=== PATIENT | female | born 1985 | race Caucasian/White ===

== ENCOUNTER 2018-07-19 12:57 | Emergency (ER) | payer MEDICAID, SELFPAY ==
[2018-07-19 13:07] VITALS: BP 117/72; PULSE 95; RESP 16; TEMP 36.6; O2SAT 95
--- NOTE | 2018-07-19 13:19 | W.ED.GENAD ---
Discharge Plan Disposition Patient Disposition: HOME Condition: Stable Discharge Details Chief Complaint: Sorethroat Clinical Impression: Upper respiratory infection, viral Primary Care Provider: Dayami Saucedo ED Provider: Dagoberto Sifuentes Home Meds and New Rx's Prescriptions: No Action acetaminophen [Tylenol Extra Strength] 500 MG tablet 1,000 mg PO PRN PRNRF: 0 Discharge Instructions Instructions: Upper Respiratory Infection (ED) Additional Instructions: Feel free to return immediately to the emergency department for any new or worsening symptoms. These may include shortness of breath, difficulty swallowing, significant change, high fever that is persistent. Otherwise get plenty of rest and drink plenty of fluids during viral illness. You may take [id number] cough and cold medication as needed for control of your symptoms. Stand Alone Forms: Work Release Referrals: Dayami Saucedo MD [Primary Care Provider] - (As needed for reassessment or if not improving over the next week. ) Discharge Data Discharge Date/Time-TO BE ENTERED AT DEPARTURE: 07/19/18 13:31 Medical Decision Making Patient presenting to the emergency department with chief complaint of sore throat, nasal congestion, dry cough. Patient states yesterday her son was diagnosed with strep throat and then yesterday evening she began having fever chills body aches sore throat nasal congestion and cough. Physical exam is consistent for upper respiratory tract infection but patient does have some tonsillary exudates and erythema. Given possible exposure rapid strep test was performed by staff submarine warfare officer which shows negative rapid strep test. Given less than 24 hours of symptoms and no signs of severe or septic illness I feel that this is more than likely viral in etiology but still plan on having strep test sent for culture given possible exposure. Patient was informed to use [id number] cough and cold medication for her symptoms and given a work note to excuse her for the next couple days. Informed patient that we would contact her with any positive culture and bit her on antibiotics as needed. After discussion of diagnosis and plan of care patient has no further needs, questions, or concerns and states clear understanding to return to the emergency department for any worsening symptoms. Lab Data Lab results reviewed: Yes I reviewed the patient's lab results. HPI General Date/Time Provider Initiated Documentation: 07/19/18 13:19. Limitations to Documentation: no limitations. Information obtained by: patient and RN notes reviewed. History of Present Illness 32 year old F presents to the emergency department with the chief complaint of Sore throat, described as moderate, with intensity rated at 5. Quality is described as aching, and is localized to the mouth (Sore throat). Patient reports no radiation. Patient started experiencing this day(s) (1) and it has been constant. No relieving factors improve symptom(s), Related Data Home Medications Medication Instructions Recorded Confirmed acetaminophen [Tylenol Extra 1,000 mg PO PRN PRN 01/02/15 07/19/18 Strength] Allergies Allergy/AdvReac Type Severity Reaction Status Date / Time epinephrine AdvReac Severe PULSE Unverified 07/19/18 13:16 DROPS, BP DROPS General Stated Complaint: Sorethroat KT: 4 Review of Systems Constitutional Reports body ache(s), Reports chills, Reports fever(s), Denies headache(s) and Reports malaise Eyes Denies eye discharge ENT Reports as per HPI, Denies headache(s), Reports nasal congestion, Denies neck pain, Reports sore throat and Denies throat swelling Cardiovascular Denies chest pain and Denies dyspnea Respiratory Reports cough and Denies dyspnea Musculoskeletal Denies joint swelling and Denies neck pain Integumentary/Breasts Denies rash Neurologic Denies headache(s) Allergic/Immunologic Denies throat swelling [facility] Social History Smoking/Tobacco Use Status: Former Tobacco Use Surgical History Ligation of fallopian tube (04/09/14) Exam Const General: cooperative, comfortable and no acute distress Orientation: alert and awake [facility] Head: normal to inspection, normocephalic and atraumatic Ears: hearing grossly normal bilaterally and TM's normal bilaterally General nose exam: external nose normal Face and sinus: no erythema and no sinus tenderness Mouth: oral mucosae normal, no drooling, no muffled voice, no trismus and No restricted motion Throat: uvula midline, abnormal tonsil bilaterally erythema, exudates and hypertrophy 1+, posterior oropharynx abnormal erythema, uvula not displaced and no uvular edema Neck Neck: normal visual inspection, full ROM, no meningeal signs, trachea midline, supple and lymphadenopathy (Anterior cervical) Resp Effort & Inspection: normal respiratory effort, able to speak in complete sentences and cough Quality of cough: dry Auscultation: clear to auscultation bilaterally Cardio Rate: regular rate Rhythm: regular rhythm Heart Sounds: S1 normal, S2 normal, normal S1 and S2, no click, no gallops, no murmurs and no rubs Skin General skin exam: no rashes or lesions noted and dry skin (warm) Neuro General: alert, awake, oriented x3, gait normal and moves all extremities Cognition: normal cognition Speech: speech normal Course Vital Signs Temperature 36.6 C 07/19/18 13:07 Pulse 95 H 07/19/18 13:07 Respiratory Rate 16 07/19/18 13:07 Blood Pressure 117/72 07/19/18 13:07 Pulse Oximetry 95 07/19/18 13:07 Temperature 36.6 C 07/19/18 13:07 Temperature Source Temporal Artery Scan 07/19/18 13:07 Pulse 95 H 07/19/18 13:07 Respiratory Rate 16 07/19/18 13:07 Respiratory Effort Non-Labored 07/19/18 13:07 Blood Pressure 117/72 07/19/18 13:07 Blood Pressure Position Sitting 07/19/18 13:07 Pulse Oximetry 95 07/19/18 13:07 Oxygen Delivery Method Room Air 07/19/18 13:07 Oxygen Flow Rate 0 07/19/18 13:07 Lab/Test Results Lab/Test Results: 07/19/18 13:15 Pharynx Streptococcus Screen ([facility]) - Pending POC Strep Test-TRUPTI(Rapid) Start: 07/19/18 13:06 Freq: .Rapid Strep Test Status: Active Protocol: Document 07/19/18 13:14 BRIAN (Rec: 07/19/18 13:14 [facility] [place] [id number]) Strep test-TRUPTI(Rapid)-POC POC-Strep test-TRUPTI (Rapid) Negative POC-Strep test-TRUPTI (Rapid) Negative
--- NOTE | 2018-07-19 13:24 | ED.GENADUL_ITS ---
Discharge Plan Disposition Patient Disposition: HOME Condition: Stable Discharge Details Chief Complaint: Sorethroat Clinical Impression: Upper respiratory infection, viral Primary Care Provider: Dayami Saucedo ED Provider: Dagoberto Sifuentes Home Meds and New Rx's Prescriptions: No Action acetaminophen [Tylenol Extra Strength] 500 MG tablet 1,000 mg PO PRN PRNRF: 0 Discharge Instructions Instructions: Upper Respiratory Infection (ED) Additional Instructions: Feel free to return immediately to the emergency department for any new or worsening symptoms. These may include shortness of breath, difficulty swallowing, significant change, high fever that is persistent. Otherwise get plenty of rest and drink plenty of fluids during viral illness. You may take [id number] cough and cold medication as needed for control of your symptoms. Stand Alone Forms: Work Release Referrals: Dayami Saucedo MD [Primary Care Provider] - (As needed for reassessment or if not improving over the next week. ) Discharge Data Discharge Date/Time-TO BE ENTERED AT DEPARTURE: 07/19/18 13:31 Medical Decision Making Patient presenting to the emergency department with chief complaint of sore throat, nasal congestion, dry cough. Patient states yesterday her son was diagnosed with strep throat and then yesterday evening she began having fever chills body aches sore throat nasal congestion and cough. Physical exam is consistent for upper respiratory tract infection but patient does have some tonsillary exudates and erythema. Given possible exposure rapid strep test was performed by staff psychologist which shows negative rapid strep test. Given less than 24 hours of symptoms and no signs of severe or septic illness I feel that this is more than likely viral in etiology but still plan on having strep test sent for culture given possible exposure. Patient was informed to use over-the- counter cough and cold medication for her symptoms and given a work note to excuse her for the next couple days. Informed patient that we would contact her with any positive culture and bit her on antibiotics as needed. After discussion of diagnosis and plan of care patient has no further needs, questions , or concerns and states clear understanding to return to the emergency department for any worsening symptoms. Lab Data Lab results reviewed: Yes I reviewed the patient's lab results. HPI General Date/Time Provider Initiated Documentation: 07/19/18 13:19 . Limitations to Documentation: no limitations . Information obtained by: patient and RN notes reviewed . History of Present Illness 32 year old F presents to the emergency department with the chief complaint of Sore throat, described as moderate, with intensity rated at 5. Quality is described as aching, and is localized to the mouth (Sore throat). Patient reports no radiation. Patient started experiencing this day(s) (1) and it has been constant. No relieving factors improve symptom(s), Related Data Home Medications Medication Instructions Recorded Confirmed acetaminophen [Tylenol Extra 1,000 mg PO PRN PRN 01/02/15 07/19/18 Strength] Allergies Allergy/AdvReac Type Severity Reaction Status Date / Time epinephrine AdvReac Severe PULSE Unverified 07/19/18 13:16 DROPS, BP DROPS General Stated Complaint: Sorethroat KT: 4 Review of Systems Constitutional Reports body ache(s), Reports chills, Reports fever(s), Denies headache(s) and Reports malaise Eyes Denies eye discharge ENT Reports as per HPI, Denies headache(s), Reports nasal congestion, Denies neck pain, Reports sore throat and Denies throat swelling Cardiovascular Denies chest pain and Denies dyspnea Respiratory Reports cough and Denies dyspnea Musculoskeletal Denies joint swelling and Denies neck pain Integumentary/Breasts Denies rash Neurologic Denies headache(s) Allergic/Immunologic Denies throat swelling [facility] Social History Smoking/Tobacco Use Status: Former Tobacco Use Surgical History Ligation of fallopian tube (04/09/14) Exam Const General: cooperative, comfortable and no acute distress Orientation: alert and awake [facility] Head: normal to inspection, normocephalic and atraumatic Ears: hearing grossly normal bilaterally and TM's normal bilaterally General nose exam: external nose normal Face and sinus: no erythema and no sinus tenderness Mouth: oral mucosae normal, no drooling, no muffled voice, no trismus and No restricted motion Throat: uvula midline, abnormal tonsil bilaterally erythema, exudates and hypertrophy 1+, posterior oropharynx abnormal erythema, uvula not displaced and no uvular edema Neck Neck: normal visual inspection, full ROM, no meningeal signs, trachea midline, supple and lymphadenopathy (Anterior cervical) Resp Effort & Inspection: normal respiratory effort, able to speak in complete sentences and cough Quality of cough: dry Auscultation: clear to auscultation bilaterally Cardio Rate: regular rate Rhythm: regular rhythm Heart Sounds: S1 normal, S2 normal, normal S1 and S2, no click, no gallops, no murmurs and no rubs Skin General skin exam: no rashes or lesions noted and dry skin (warm) Neuro General: alert, awake, oriented x3, gait normal and moves all extremities Cognition: normal cognition Speech: speech normal Course Vital Signs Temperature 36.6 C 07/19/18 13:07 Pulse 95 H 07/19/18 13:07 Respiratory Rate 16 07/19/18 13:07 Blood Pressure 117/72 07/19/18 13:07 Pulse Oximetry 95 07/19/18 13:07 Temperature 36.6 C 07/19/18 13:07 Temperature Source Temporal Artery Scan 07/19/18 13:07 Pulse 95 H 07/19/18 13:07 Respiratory Rate 16 07/19/18 13:07 Respiratory Effort Non-Labored 07/19/18 13:07 Blood Pressure 117/72 07/19/18 13:07 Blood Pressure Position Sitting 07/19/18 13:07 Pulse Oximetry 95 07/19/18 13:07 Oxygen Delivery Method Room Air 07/19/18 13:07 Oxygen Flow Rate 0 07/19/18 13:07 Lab/Test Results Lab/Test Results: 07/19/18 13:15 Pharynx Streptococcus Screen ([facility]) - Pending POC Strep Test-TRUPTI(Rapid) Start: 07/19/18 13: 06 Freq: .Rapid Strep Test Status: Active Protocol: Document 07/19/18 13:14 BRIAN (Rec: 07/19/18 13:14 [facility] [place] [id number]) Strep test-TRUPTI(Rapid)-POC POC-Strep test-TRUPTI (Rapid) Negative POC-Strep test-TRUPTI (Rapid) Negative
== END 2018-07-19 13:31 | disposition home or self-care (01) ==
PROVIDERS: Emergency Provider Nurse Practitioner Family; PCP Family Medicine
DX: J06.9 Acute upper respiratory infection, unspecified (principal)
CPT/HCPCS: 87880; 99282; 87081

== ENCOUNTER 2018-07-28 09:02 | Emergency (ER) | payer MEDICAID, SELFPAY ==
[2018-07-28 09:06] VITALS: BP 110/46; PULSE 73; RESP 16; TEMP 36.8; O2SAT 97
--- NOTE | 2018-07-28 09:36 | W.ED.GENAD ---
Discharge Plan Disposition Patient Disposition: HOME Condition: Stable Discharge Details Chief Complaint: EyeProblem Clinical Impression: Acute conjunctivitis, right eye, Periorbital cellulitis of right eye Primary Care Provider: Dayami Saucedo ED Provider: Zain Foster Home Meds and New Rx's Prescriptions: New levofloxacin 0.5 % drops See Label Instructions .ROUTE .COMPLEX Qty: 5 RF: 0 amoxicillin-pot clavulanate [Augmentin] 875-125 mg tablet 1 tab PO BID Qty: 14 RF: 0 Continue acetaminophen [Tylenol Extra Strength] 500 MG tablet 1,000 mg PO PRN PRNRF: 0 Discharge Instructions Instructions: Periorbital Cellulitis in Adults (ED), Conjunctivitis (ED) Additional Instructions: follow up with your eye managed care director's office Monday or Monday if you have deep eye pain or vision changes or fever return to the emergency department for reevaluation Discharge Data Discharge Physician: Zain Foster Medical Decision Making 32 yo female comes in with right eye burning and itching since yesterday. She left her contacts in by mistake when she went to sleep 2 nights ago. Had itching and dryness of the right eye and now has redness of the conjunctiva and mild swelling around the right orbit. Denies deep eye pain and has no pain on extraocular eye movements so do not suspect orbital cellulitis at this time. Will start her on abx for conjunctivitis and oral therapy for periorbital cellulitis and have her f/u with [facility] early this week, return precautions given Differential Diagnosis conjunctivitis, orbital cellulitis, periorbital cellulitis HPI General Mode of arrival: ambulatory. Date/Time Provider Initiated Documentation: 07/28/18 09:26. Limitations to Documentation: no limitations. Information obtained by: patient. History of Present Illness 32 year old F presents to the emergency department with the chief complaint of right eye itching, described as moderate, with intensity rated at 5. Quality is described as burning, and is localized to the eyes. Patient reports no radiation. Patient started experiencing this day(s) (1) and it has been constant. No relieving factors improve symptom(s), No exacerbating factors reported . Patient notes no other symptoms.. Patient did receive the following treatments prior to arrival, none Related Data Home Medications Medication Instructions Recorded Confirmed acetaminophen [Tylenol Extra 1,000 mg PO PRN PRN 01/02/15 07/28/18 Strength] amoxicillin-pot clavulanate 1 tab PO BID #14 tab 07/28/18 [Augmentin] levofloxacin See Label Instructions .ROUTE 07/28/18 .COMPLEX #5 ml Previous Rx's Medication Instructions Recorded amoxicillin-pot clavulanate 1 tab PO BID #14 tab 07/28/18 [Augmentin] levofloxacin See Label Instructions .ROUTE 07/28/18 .COMPLEX #5 ml Allergies Allergy/AdvReac Type Severity Reaction Status Date / Time epinephrine AdvReac Severe PULSE Unverified 07/28/18 09:11 DROPS, BP DROPS General Stated Complaint: EyeProblem KT: 4 Review of Systems Review of Systems All systems reviewed & are unremarkable except as noted in HPI and below Constitutional Denies chills, Denies fever(s) and Denies weakness Eyes Denies loss of vision ENT Denies change in voice Cardiovascular Denies chest pain and Denies dyspnea Respiratory Denies dyspnea Gastrointestinal Denies abdominal pain, Denies nausea and Denies vomiting Genitourinary Denies dysuria Musculoskeletal Denies joint swelling Integumentary/Breasts Denies rash Neurologic Denies loss of vision and Denies weakness Psychiatric Denies depression Exam Const General: no acute distress Orientation: alert HENMT Head: normal to inspection Ears: external ears normal General nose exam: external nose normal Mouth: moist mucous membranes Eyes Alignment and Position: alignment normal Cornea: other (right periorbital swelling, injected conjuncitiva on the right, no pain on extraocular movements, no visualizes corneal abrasions or foreign bodies, normal left eye exam) Pupils: PERRL EOM: EOM intact bilaterally Neck Neck: normal visual inspection Resp Effort & Inspection: normal respiratory effort and able to speak in complete sentences Cardio Rate: regular rate Skin General skin exam: no rashes or lesions noted Neuro General: alert and oriented x3 Extrem General: normal to inspection Psych Mental Status: mental status grossly normal Course Vital Signs Temperature 36.8 C 07/28/18 09:06 Pulse 73 07/28/18 09:06 Respiratory Rate 16 07/28/18 09:06 Blood Pressure 110/46 L 07/28/18 09:06 Pulse Oximetry 97 07/28/18 09:06 Temperature 36.8 C 07/28/18 09:06 Temperature Source Skin 07/28/18 09:06 Pulse 73 07/28/18 09:06 Respiratory Rate 16 07/28/18 09:06 Respiratory Effort Non-Labored 07/28/18 09:10 Blood Pressure 110/46 L 07/28/18 09:06 Pulse Oximetry 97 07/28/18 09:06 Pain Level 3 07/28/18 09:06
--- NOTE | 2018-07-28 09:41 | ED.GENADUL_ITS ---
Discharge Plan Disposition Patient Disposition: HOME Condition: Stable Discharge Details Chief Complaint: EyeProblem Clinical Impression: Acute conjunctivitis, right eye, Periorbital cellulitis of right eye Primary Care Provider: Dayami Saucedo ED Provider: Zain Foster Home Meds and New Rx's Prescriptions: New levofloxacin 0.5 % drops See Label Instructions .ROUTE .COMPLEX Qty: 5 RF: 0 amoxicillin-pot clavulanate [Augmentin] 875-125 mg tablet 1 tab PO BID Qty: 14 RF: 0 Continue acetaminophen [Tylenol Extra Strength] 500 MG tablet 1,000 mg PO PRN PRNRF: 0 Discharge Instructions Instructions: Periorbital Cellulitis in Adults (ED), Conjunctivitis (ED) Additional Instructions: follow up with your eye career agent's office Monday or Monday if you have deep eye pain or vision changes or fever return to the emergency department for reevaluation Discharge Data Discharge Physician: Zain Foster Medical Decision Making 32 yo female comes in with right eye burning and itching since yesterday. She left her contacts in by mistake when she went to sleep 2 nights ago. Had itching and dryness of the right eye and now has redness of the conjunctiva and mild swelling around the right orbit. Denies deep eye pain and has no pain on extraocular eye movements so do not suspect orbital cellulitis at this time. Will start her on abx for conjunctivitis and oral therapy for periorbital cellulitis and have her f/u with [facility] early this week, return precautions given Differential Diagnosis conjunctivitis, orbital cellulitis, periorbital cellulitis HPI General Mode of arrival: ambulatory . Date/Time Provider Initiated Documentation: 07/28/18 09:26 . Limitations to Documentation: no limitations . Information obtained by: patient . History of Present Illness 32 year old F presents to the emergency department with the chief complaint of right eye itching, described as moderate, with intensity rated at 5. Quality is described as burning, and is localized to the eyes. Patient reports no radiation. Patient started experiencing this day(s) (1) and it has been constant. No relieving factors improve symptom(s), No exacerbating factors reported . Patient notes no other symptoms.. Patient did receive the following treatments prior to arrival, none Related Data Home Medications Medication Instructions Recorded Confirmed acetaminophen [Tylenol Extra 1,000 mg PO PRN PRN 01/02/15 07/28/18 Strength] amoxicillin-pot clavulanate 1 tab PO BID #14 tab 07/28/18 [Augmentin] levofloxacin See Label Instructions .ROUTE 07/28/18 .COMPLEX #5 ml Previous Rx's Medication Instructions Recorded amoxicillin-pot clavulanate 1 tab PO BID #14 tab 07/28/18 [Augmentin] levofloxacin See Label Instructions .ROUTE 07/28/18 .COMPLEX #5 ml Allergies Allergy/AdvReac Type Severity Reaction Status Date / Time epinephrine AdvReac Severe PULSE Unverified 07/28/18 09:11 DROPS, BP DROPS General Stated Complaint: EyeProblem KT: 4 Review of Systems Review of Systems All systems reviewed & are unremarkable except as noted in HPI and below Constitutional Denies chills, Denies fever(s) and Denies weakness Eyes Denies loss of vision ENT Denies change in voice Cardiovascular Denies chest pain and Denies dyspnea Respiratory Denies dyspnea Gastrointestinal Denies abdominal pain, Denies nausea and Denies vomiting Genitourinary Denies dysuria Musculoskeletal Denies joint swelling Integumentary/Breasts Denies rash Neurologic Denies loss of vision and Denies weakness Psychiatric Denies depression Exam Const General: no acute distress Orientation: alert HENMT Head: normal to inspection Ears: external ears normal General nose exam: external nose normal Mouth: moist mucous membranes Eyes Alignment and Position: alignment normal Cornea: other (right periorbital swelling, injected conjuncitiva on the right, no pain on extraocular movements, no visualizes corneal abrasions or foreign bodies, normal left eye exam) Pupils: PERRL EOM: EOM intact bilaterally Neck Neck: normal visual inspection Resp Effort & Inspection: normal respiratory effort and able to speak in complete sentences Cardio Rate: regular rate Skin General skin exam: no rashes or lesions noted Neuro General: alert and oriented x3 Extrem General: normal to inspection Psych Mental Status: mental status grossly normal Course Vital Signs Temperature 36.8 C 07/28/18 09:06 Pulse 73 07/28/18 09:06 Respiratory Rate 16 07/28/18 09:06 Blood Pressure 110/46 L 07/28/18 09:06 Pulse Oximetry 97 07/28/18 09:06 Temperature 36.8 C 07/28/18 09:06 Temperature Source Skin 07/28/18 09:06 Pulse 73 07/28/18 09:06 Respiratory Rate 16 07/28/18 09:06 Respiratory Effort Non-Labored 07/28/18 09:10 Blood Pressure 110/46 L 07/28/18 09:06 Pulse Oximetry 97 07/28/18 09:06 Pain Level 3 07/28/18 09:06
--- NOTE | 2018-07-30 08:15 | CMPROGNOTE_ITS ---
Care Management Progress Note 07/30-Dr. Foster requested assistance with a [facility] referral for Monday/Monday for conjunctivitis/cellulitis. Referral, demographics, and provider note faxed to [facility] this am.
== END 2018-07-28 09:50 | disposition home or self-care (01) ==
PROVIDERS: Emergency Provider Emergency Medicine; PCP Family Medicine
DX: H10.31 Unspecified acute conjunctivitis, right eye (principal); L03.213 Periorbital cellulitis
CPT/HCPCS: 99283

== ENCOUNTER 2018-11-09 08:45 | Emergency (ER) | payer MEDICAID, SELFPAY ==
[2018-11-09 08:50] VITALS: BP 102/45; PULSE 69; RESP 18; TEMP 37; O2SAT 97
--- NOTE | 2018-11-09 09:17 | W.ED.GENAD ---
Discharge Plan Disposition Patient Disposition: HOME Condition: Stable Discharge Details Chief Complaint: Orthopedic Clinical Impression: Epicondylitis elbow, medial Primary Care Provider: Dayami Saucedo ED Provider: Dagoberto Sifuentes Discharge Instructions Instructions: Tendinitis (ED), RICE Therapy (ED) Additional Instructions: Please rest the affected extremity and use [id number] medication preferably NSAIDs for discomfort. 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 I would use this brace for the next 2 weeks. If not improving follow-up with your primary care provider for reassessment Stand Alone Forms: Work Release Referrals: Dayami Saucedo MD [Primary Care Provider] - (As needed for reassessment) Medical Decision Making Patient presenting to the emergency department for chief complaint of right elbow pain. Patient states that yes today evening while unloading her vehicle she felt a slight pop in her right elbow and started having pain. Patient denies any trauma or blunt force to the elbow. Patient took some ibuprofen yesterday evening which seemed to help reduce the discomfort but continued to have pain this morning so work sent her to the emergency department for evaluation. Patient has medial epicondyle discomfort especially with supination and with counterforce to the mid forearm has relief of symptoms. Concern for medial epicondylitis but doubt fracture or dislocation. Patient encouraged to use NSAIDs, rest ice compression, and purchase a counterforce brace and use over the next 2 weeks. Patient given a work note. After discussion of diagnosis and plan of care patient has no further needs, questions, or concerns and states clear understanding to return to the emergency department for any worsening symptoms. HPI General Mode of arrival: ambulatory. Date/Time Provider Initiated Documentation: 11/09/18 08:46. Limitations to Documentation: no limitations. Information obtained by: patient. History of Present Illness 33 year old F presents to the emergency department with the chief complaint of right elbow pain, described as moderate, with intensity rated at 7. Quality is described as sharp, and is localized to the right and upper extremity. Patient started experiencing this day(s) (1) and it has been constant. Rest improves symptom(s), Movement worsens symptoms . Patient notes no other symptoms.. Patient did receive the following treatments prior to arrival, NSAID Related Data Allergies Allergy/AdvReac Type Severity Reaction Status Date / Time epinephrine AdvReac Severe PULSE Unverified 07/28/18 09:11 DROPS, BP DROPS General Stated Complaint: Orthopedic KT: 4 Review of Systems Cardiovascular Denies syncope Musculoskeletal Reports as per HPI, Reports limited range of motion, Denies numbness and Reports tingling Integumentary/Breasts Denies rash, Denies sores and Denies wounds Neurologic Denies syncope, Denies numbness and Reports tingling PFSH Surgical History Ligation of fallopian tube (04/09/14) Social History Smoking/Tobacco Use Status: Current every day Exam Const General: cooperative and no acute distress Orientation: alert, awake and oriented x3 Resp Effort & Inspection: normal respiratory effort and able to speak in complete sentences Cardio Rate: regular rate Rhythm: regular rhythm Extrem General: normal exam except as noted Right upper extremity: shoulder/upper arm Details: normal to inspection and normal ROM; no tenderness and elbow/forearm Details: tenderness Location: of the medial epicondyle Details: with resisted supination; Negative for proximal forearm, abnormal ROM Details: pain with active ROM during Details: with supination and distal pulses intact; no swelling, no unusual warmth, no crepitus and no deformity Course Vital Signs Temperature 37 C 11/09/18 08:50 Pulse 69 11/09/18 08:50 Respiratory Rate 18 11/09/18 08:50 Blood Pressure 102/45 L 11/09/18 08:50 Pulse Oximetry 97 11/09/18 08:50 Temperature 37 C 11/09/18 08:50 Temperature Source Skin 11/09/18 08:50 Pulse 69 11/09/18 08:50 Respiratory Rate 18 11/09/18 08:50 Blood Pressure 102/45 L 11/09/18 08:50 Pulse Oximetry 97 11/09/18 08:50 Oxygen Delivery Method Room Air 11/09/18 08:50 Oxygen Flow Rate 0 11/09/18 08:50 Pain Level 7 11/09/18 08:50
--- NOTE | 2018-11-09 09:25 | ED.GENADUL_ITS ---
Discharge Plan Disposition Patient Disposition: HOME Condition: Stable Discharge Details Chief Complaint: Orthopedic Clinical Impression: Epicondylitis elbow, medial Primary Care Provider: Dayami Saucedo ED Provider: Dagoberto Sifuentes Discharge Instructions Instructions: Tendinitis (ED), RICE Therapy (ED) Additional Instructions: Please rest the affected extremity and use [id number] medication preferably NSAIDs for discomfort. 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 I would use this brace for the next 2 weeks. If not improving follow-up with your primary care provider for reassessment Stand Alone Forms: Work Release Referrals: Dayami Saucedo MD [Primary Care Provider] - (As needed for reassessment) Medical Decision Making Patient presenting to the emergency department for chief complaint of right elbow pain. Patient states that yes today evening while unloading her vehicle she felt a slight pop in her right elbow and started having pain. Patient denies any trauma or blunt force to the elbow. Patient took some ibuprofen yesterday evening which seemed to help reduce the discomfort but continued to have pain this morning so work sent her to the emergency department for evaluation. Patient has medial epicondyle discomfort especially with supination and with counterforce to the mid forearm has relief of symptoms. Concern for medial epicondylitis but doubt fracture or dislocation. Patient encouraged to use NSAIDs, rest ice compression, and purchase a counterforce brace and use over the next 2 weeks. Patient given a work note. After discussion of diagnosis and plan of care patient has no further needs, questions, or concerns and states clear understanding to return to the emergency department for any worsening symptoms. HPI General Mode of arrival: ambulatory . Date/Time Provider Initiated Documentation: 11/09/18 08:46 . Limitations to Documentation: no limitations . Information obtained by: patient . History of Present Illness 33 year old F presents to the emergency department with the chief complaint of right elbow pain, described as moderate, with intensity rated at 7. Quality is described as sharp, and is localized to the right and upper extremity. Patient started experiencing this day(s) (1) and it has been constant. Rest improves symptom(s), Movement worsens symptoms . Patient notes no other symptoms.. Patient did receive the following treatments prior to arrival, NSAID Related Data Allergies Allergy/AdvReac Type Severity Reaction Status Date / Time epinephrine AdvReac Severe PULSE Unverified 07/28/18 09:11 DROPS, BP DROPS General Stated Complaint: Orthopedic KT: 4 Review of Systems Cardiovascular Denies syncope Musculoskeletal Reports as per HPI, Reports limited range of motion, Denies numbness and Reports tingling Integumentary/Breasts Denies rash, Denies sores and Denies wounds Neurologic Denies syncope, Denies numbness and Reports tingling PFSH Surgical History Ligation of fallopian tube (04/09/14) Social History Smoking/Tobacco Use Status: Current every day Exam Const General: cooperative and no acute distress Orientation: alert, awake and oriented x3 Resp Effort & Inspection: normal respiratory effort and able to speak in complete sentences Cardio Rate: regular rate Rhythm: regular rhythm Extrem General: normal exam except as noted Right upper extremity: shoulder/upper arm Details: normal to inspection and normal ROM; no tenderness and elbow/forearm Details: tenderness Location: of the medial epicondyle Details: with resisted supination; Negative for proximal forearm, abnormal ROM Details: pain with active ROM during Details: with supination and distal pulses intact; no swelling, no unusual warmth, no crepitus and no deformity Course Vital Signs Temperature 37 C 11/09/18 08:50 Pulse 69 11/09/18 08:50 Respiratory Rate 18 11/09/18 08:50 Blood Pressure 102/45 L 11/09/18 08:50 Pulse Oximetry 97 11/09/18 08:50 Temperature 37 C 11/09/18 08:50 Temperature Source Skin 11/09/18 08:50 Pulse 69 11/09/18 08:50 Respiratory Rate 18 11/09/18 08:50 Blood Pressure 102/45 L 11/09/18 08:50 Pulse Oximetry 97 11/09/18 08:50 Oxygen Delivery Method Room Air 11/09/18 08:50 Oxygen Flow Rate 0 11/09/18 08:50 Pain Level 7 11/09/18 08:50
== END 2018-11-09 09:32 | disposition home or self-care (01) ==
PROVIDERS: Emergency Provider Nurse Practitioner Family; PCP Family Medicine
DX: M77.01 Medial epicondylitis, right elbow (principal)
CPT/HCPCS: 99282

== ENCOUNTER 2019-06-05 16:55 | Emergency (ER) | payer MEDICAID, SELFPAY ==
[2019-06-05 17:03] VITALS: BP 131/114; PULSE 74; RESP 16; TEMP 37.1; O2SAT 99
--- NOTE | 2019-06-05 17:05 | ED.GENADUL_ITS ---
Discharge Plan Disposition Patient Disposition: HOME Condition: Good Discharge Details Chief Complaint: Sorethroat Clinical Impression: URI (upper respiratory infection) Primary Care Provider: Dayami Saucedo ED Provider: Dutch Kellogg Discharge Instructions Instructions: Upper Respiratory Infection (ED) Additional Instructions: Your strep test is negative. It is likely a virus causing her symptoms. Please make sure to drink 10 to 12 cups of water per day, take Tylenol and Motrin as needed for pain. If you notice any worsening of your symptoms, or any new symptoms such as vomiting, diarrhea, fever, chills, shortness of breath, chest pain, numbness, weakness, or fainting , please return immediately to the emergency department for reevaluation. Please follow up with your primary care provider as soon as possible for reassessment and reevaluation. As always, it was a pleasure participating in your medical care today. Referrals: Dayami Saucedo MD [Primary Care Provider] - Discharge Data Discharge Date/Time-TO BE ENTERED AT DEPARTURE: 06/05/19 17:23 Medical Decision Making This is a 33-year-old female who presents for evaluation of sore throat and congestion. Physical exam demonstrates no concerning symptoms of meningitis, posterior oropharynx is nonerythematous, tonsils are normal. Ears are normal. Strep test is negative. Signs and symptoms are clinically consistent with viral upper respiratory infection. Patient will be discharged home with recommendations for Tylenol, Motrin, and close follow-up with her PCP. I have extensively reviewed the treatment plan and discharge instructions with the patient. I have addressed all patient concerns at this time. The patient was made aware of what symptoms to monitor for that would warrant a return to the emergency department. Discussed the plan with the patient, they demonstrate verbal understanding and agreement with our assessment and plan at this time. HPI General Date/Time Provider Initiated Documentation: 06/05/19 16:58 . HPI Narrative: This is a 33-year-old female with no past medical history who presents today for 2 days of upper respiratory congestion, and 1 day of sore throat. 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 She denies any chest pain, cough, fever, chills, headache, or neck pain. She denies any other complaints at this time. Symptoms are slightly improved with Tylenol and Motrin. She denies any other modifying factors. Related Data Allergies Allergy/AdvReac Type Severity Reaction Status Date / Time epinephrine AdvReac Severe PULSE Unverified 07/28/18 09:11 DROPS, BP DROPS General KT: 4 Review of Systems Review of Systems All systems reviewed & are unremarkable except as noted in HPI and below PFSH Social History Smoking/Tobacco Use Status: Current every day Alcohol Intake: current Alcohol Intake frequency: holidays/special occasions only Drug use: Never Substance use type: does not use Do you feel safe at home: Yes Do you feel safe in your relationship?: Yes Exam Narrative Exam Narrative: 1.Const: Well-nourished, Well-developed, appearing stated age 2.Eyes: PERRL, no conjunctival injection, and symmetrical lids. 3.ENT: Atraumatic external nose and ears. Moist MM. Neck: Symmetric, trachea midline, No thyromegaly. Patient demonstrates good movement of cervical neck. There is no nuchal rigidity, no nuchal tenderness. Patient is able to flex the neck without any difficulty or significant pain. Negative Kernig's and Brudzinski sign. No significant erythema in the posterior oropharynx. No tonsillar exudate. No cervical lymphadenopathy. Bilateral ears demonstrate no evidence of otitis media or externa 4.CVS: +S1/S2, No murmurs or gallops. Peripheral pulses 2+ and equal in all extremities. Brisk capillary refill in all extremities. 5.RESP: Unlabored respiratory effort. Clear to auscultation bilaterally. No wheezes rales or rhonchi 6.GI: Soft, Nontender/Nondistended, No hepatosplenomegaly. No guarding or rebound. 7.MSK: Normocephalic/Atraumatic, Extremities w/o deformity or ttp No cyanosis or clubbing, Normal movement of all extremities 8.Skin: Warm, Dry. No rashes or lesions. 9.Neuro: drier belt conveyor II-XII grossly intact. Sensation grossly intact, no focal neurologic deficits. 10.Psych: (AAO) x3. Appropriate mood and affect
== END 2019-06-05 17:23 | disposition home or self-care (01) ==
LOC: ER 17:12
PROVIDERS: Emergency Provider Student in an Organized Health Care Education/Training Program; PCP Family Medicine
DX: J06.9 Acute upper respiratory infection, unspecified (principal)
CPT/HCPCS: 87880; 99282

== ENCOUNTER 2019-06-21 13:53 | Outpatient (REF) | payer MEDICAID, SELFPAY ==
[2019-06-21 18:49] LABS: HCT 40.7 % (36.0-46.0); HGB 13.7 g/dL (12.0-15.5); Mean Corp. HGB Concentration 33.7 g/dL (32.0-36.0); Mean Corpuscular Hemoglobin 29.7 pg (27.0-33.0); Mean Corpuscular Volume 88.3 fL (80-95); Mean Platelet Volume 10.4 fL (8.0-11.0); Platelet Count 355 x1000/uL (130-400); RBC 4.61 m/cumm (4.00-5.20); RBC Distribution Width 12.5 % (11.7-14.6); White Blood Cell Count 7.96 k/cumm (4.4-10.8)
[2019-06-21 19:01] LABS: Anion Gap 12.7 mmol/L (3-11); BUN 15 mg/dL (7-18); CO2 26.3 mmol/L (21.0-32.0); CREATININE 0.63 mg/dL (0.55-1.02); Calcium 10.7 mg/dL (8.5-10.1); Chloride 102 mmol/L (98-107); Glucose 93 mg/dL (70-100); Potassium 4.4 mmol/L (3.5-5.1); Sodium 141 mmol/L (136-145); TSH (W/Ref FT4) 0.74 uIU/mL (0.36-3.74)
== END 2019-06-21 14:13 ==
LOC: NCHCN 13:53
PROVIDERS: PCP Family Medicine; Visit Provider Nurse Practitioner Family
DX: F39 Unspecified mood [affective] disorder (principal); R53.83 Other fatigue
CPT/HCPCS: 80048; 85027; 84443

== ENCOUNTER 2019-07-26 09:06 | Emergency (ER) | payer MEDICAID, SELFPAY ==
[2019-07-26 09:09] VITALS: BP 119/48; PULSE 67; RESP 16; TEMP 36.6; O2SAT 98
--- NOTE | 2019-07-26 09:18 | W.ED.GENAD ---
Discharge Plan Disposition Patient Disposition: HOME Condition: Stable Discharge Details Chief Complaint: Nk/Back Pain Clinical Impression: Muscle spasms of neck Primary Care Provider: Dayami Saucedo ED Provider: Zain Foster Home Meds and New Rx's Prescriptions: New cyclobenzaprine 10 mg tablet 10 mg PO TID PRN (Reason: muscle spasm) Qty: 20 RF: 0 Discharge Instructions Instructions: Acute Neck Pain (ED) Additional Instructions: take 1000mg tylenol and 600mg ibuprofen every 6 hours as needed for pain do not drink alcohol or drive if you take cyclobenzaprine (flexeril) if you have high fevers, persistent vomit or severe headaches or feel more ill return to the emergency department Stand Alone Forms: Work Release Medical Decision Making 33 yo female with no chronic medical problems comes in with neck pain. She does state she has intermittent low back pain chronically and was having some earlier so she laid on the ground. She then had some left sided neck pain and states when she was younger she would get neck pain often. Denies falls or other trauma, no fevers or headaches and no meningismus on exam. She localizes the pain to the left lateral neck over the trapezius without swelling redness or other rashes. No midline neck pain. The pain is better when she has her head slightly turned to the left and down. Suspect spasm vs torticollis. 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 Pt declining muscle relaxers, will give toradol and reassess. pt feels better, suspect spsam, will d/c home with return precautions given Differential Diagnosis Differential Diagnosis: torticollis, muscle spasm, strain HPI General Mode of arrival: ambulatory. Date/Time Provider Initiated Documentation: 07/26/19 09:07. Limitations to Documentation: no limitations. Information obtained by: patient. History of Present Illness 33 year old F presents to the emergency department with the chief complaint of neck pain, described as moderate, Quality is described as aching, and is localized to the neck. Patient reports no radiation. Patient started experiencing this hour(s) (2) and it has been constant. Rest improves symptom(s), Movement worsens symptoms . Patient notes no other symptoms.. Related Data Home Medications Medication Instructions Recorded Confirmed cyclobenzaprine 10 mg PO TID PRN #20 tab 07/26/19 Previous Rx's Medication Instructions Recorded cyclobenzaprine 10 mg PO TID PRN #20 tab 07/26/19 Allergies Allergy/AdvReac Type Severity Reaction Status Date / Time epinephrine AdvReac Severe PULSE Unverified 07/28/18 09:11 DROPS, BP DROPS General Stated Complaint: Nk/Back Pain KT: 4 Review of Systems Review of Systems ROS Unobtainable: All systems reviewed & are unremarkable except as noted in HPI and below Constitutional Constitutional: Denies chills, Denies fever(s) and Denies weakness Cardiovascular Cardiovascular: Denies chest pain and Denies dyspnea Respiratory Respiratory: Denies cough and Denies dyspnea Gastrointestinal Gastrointestinal: Denies abdominal pain, Denies nausea and Denies vomiting Musculoskeletal Musculoskeletal: Denies joint swelling Neurologic Neurologic: Denies weakness Endocrine Endocrine: Denies heat intolerance [facility] Social History Smoking/Tobacco Use Status: Current every day Alcohol Intake: current Alcohol Intake frequency: holidays/special occasions only Drug use: Never Substance use type: does not use Do you feel safe at home: Yes Do you feel safe in your relationship?: Yes Exam Const General: no acute distress Orientation: alert HENMT Head: normal to inspection Ears: external ears normal General nose exam: external nose normal Mouth: moist mucous membranes Eyes General: appearance normal, both eyes and all related structures Neck Neck: normal visual inspection, no lymphadenopathy and no meningeal signs Resp Effort & Inspection: normal respiratory effort and able to speak in complete sentences Cardio Rate: regular rate Skin General skin exam: no rashes or lesions noted Neuro General: alert and oriented x3 Extrem General: normal to inspection Psych Mental Status: mental status grossly normal Course Vital Signs Vital signs: Vital Signs Temperature 36.6 C 07/26/19 09:09 Pulse 67 07/26/19 09:09 Respiratory Rate 16 07/26/19 09:09 Blood Pressure 119/48 L 07/26/19 09:09 Pulse Oximetry 98 07/26/19 09:09 Temperature 36.6 C 07/26/19 09:09 Temperature Source Temporal Artery Scan 07/26/19 09:09 Pulse 67 07/26/19 09:09 Respiratory Rate 16 07/26/19 09:09 Respiratory Effort 07/26/19 09:09 Blood Pressure 119/48 L 07/26/19 09:09 Pulse Oximetry 98 07/26/19 09:09 Oxygen Delivery Method Room Air 07/26/19 09:09 Oxygen Flow Rate 0 07/26/19 09:09 Pain Level 9 07/26/19 09:09
[2019-07-26] MEDS: Ketorolac 30 MG/ML VIAL IM (09:22)
== END 2019-07-26 09:34 | disposition home or self-care (01) ==
PROVIDERS: Emergency Provider Emergency Medicine; PCP Nurse Practitioner Family
DX: M62.838 Other muscle spasm (principal)
CPT/HCPCS: 96372; 99284; J1885

== ENCOUNTER 2021-04-25 13:39 | Emergency (ER) | payer MEDICAID, SELFPAY ==
[2021-04-25 13:44] VITALS: BP 107/63; PULSE 66; RESP 18; TEMP 37.3; O2SAT 98
--- NOTE | 2021-04-25 14:04 | ED.GENADUL_ITS ---
Discharge Plan Disposition Patient Disposition: HOME Condition: Improving Discharge Details Clinical Impression: Abdominal bloating with cramps Primary Care Provider: Burak Yoder ED Provider: Frances Hill Home Meds and New Rx's Prescriptions: New amoxicillin-pot clavulanate [Augmentin] 875-125 mg tablet 1 tab PO BID 5 Days Qty: 10 RF: 0 Discontinued clindamycin HCl 300 mg capsule 300 mg PO QID RF: 0 No Action ibuprofen 400 mg Tablet 400 mg PO PRN PRNRF: 0 acetaminophen [Tylenol] 325 mg Capsule 500 mg PO PRN PRNRF: 0 Discharge Instructions Instructions: Gas and Bloating (ED), Abdominal Pain (ED) Additional Instructions: At this time work-up is largely unremarkable CT shows no evidence for appendicitis or any acute abdominal abnormality. There was a small lesion on your liver that might need a follow-up ultrasound. Please discuss this with your primary care provider. Stop the clindamycin I have sent a new prescription for Augmentin to the pharmacy we have on file for you. Follow up with primary care provider in 3-5 days. Return to ED sooner if any worsening or concerns. Increase oral fluids. Please take Tylenol or Ibuprofen with food every 4-6 hours as needed for pain and swelling. Referrals: Burak Yoder, [employer] [Primary Care Provider] - Discharge Data Discharge Date/Time-TO BE ENTERED AT DEPARTURE: 04/25/21 17:05 Medical Decision Making <NIEVES Miller - Last Filed: 04/25/21 17:08> Patient is a pleasant 35-year-old female presenting today for abdominal bloating and right lower quadrant pain. Reports has been clindamycin now for 2 days for her left lower dental pain. States that clindamycin has been helping with her dental discomfort admitted largely resolved at this time. She denies any fevers or chills. No change in her appetite. Has not had pain like this historically. Past surgical history pertinent for tubal ligation. Has not noted pain being worse with food. No nausea or vomiting. States that her stools have been soft since beginning the clindamycin but she is now having a large amount of diarrhea. Has been eating yogurt. No rash. Denies any shortness of breath or chest discomfort. Denies any dysuria. No vaginal discharge. On exam, patient appears nontoxic. Her vital signs are stable. Lungs are clear, normal cardiac exam. No CVA tenderness. Abdomen is soft. She does have tenderness of the right lower quadrant. No peritoneal findings. Pain does seem to be focused over McBurney's point. Differential at this time includes C. difficile infection, gas discomfort, appendicitis, ovarian cyst. I did consider torsion although her description of the pain seems much more minimal than I would expect for this. Patient does report that she has had ovarian cyst historically and that the pain seems higher than her typical pain. Patient declines any analgesics. We will hydrate the patient. Will obtain baseline labs and CT. At the end of my shift, care transitioned to Frances Hill NP with imaging and labs pending. Patient resting in stable condition. <Frances Hill - Last Filed: 04/25/21 22:16> Care assumed from provider (NIEVES Abdi) Please see the initial HPI, PE, and documentation. Discussed patient details and case and pending workup and disposition. Patient is hemodynamically stable, and alert and oriented. Patient reevaluation: Reports feeling better than when she first arrived she is alert and oriented. CT results as noted below. COMPARISON: US PELVIS TRANSVAG 03/04/2016 5:23 PM FINDINGS: Liver: There is a heterogeneous 1.0 x 1.0 cm right liver mass, incompletely characterized. Gallbladder and bile ducts: Normal. No calcified stones. No ductal dilation. Pancreas: Normal. No ductal dilation. Spleen: Normal. No splenomegaly. Adrenal glands: Normal. No mass. Kidneys and ureters: Normal. No hydronephrosis. Stomach and bowel: Unremarkable. No obstruction. No mucosal thickening. Appendix: The appendix is normal (series 4 image 59). Intraperitoneal space: Unremarkable. No free air. No significant fluid collection. Vasculature: Unremarkable. No abdominal aortic aneurysm. Lymph nodes: Unremarkable. No enlarged lymph nodes. Urinary bladder: Unremarkable as visualized. Reproductive: Unremarkable as visualized. Bones/joints: Unremarkable. No acute fracture. Soft tissues: Unremarkable. IMPRESSION: 1. Heterogeneous 1 cm right liver mass. Nonemergent ultrasound could be obtained for initial characterization. 2. No acute disease in abdomen or pelvis. Normal appendix Patient to be discharged home with instructions to follow-up with primary care provider and strict return instructions if increased abdominal pain, fever, vomiting. I do suspect at this time that the symptoms patient is experiencing is from the clindamycin. Will instruct patient to stop the clindamycin and start Augmentin for the next 5 days. Patient was alert oriented, ambulatory, and hemodynamically stable at the time of the discharge. HPI <NIEVES Miller - Last Filed: 04/25/21 17:08> General Mode of arrival: ambulatory . Date/Time Provider Initiated Documentation: 04/25/21 14:04 . Limitations to Documentation: no limitations . Information obtained by: patient and RN notes reviewed . History of Present Illness 35 year old F presents to the emergency department with the chief complaint of abdominal discomfort , described as moderate, with intensity rated at 6. Quality is described as aching (feels bloated), and is localized to the abdomen. Patient reports no radiation. Patient started experiencing this hour(s) and it has been constant. No relieving factors improve symptom(s), Medication worsens symptoms (associates with starting Clindamycin 2 days ago) . Patient notes denies chest pain, diaphoresis, fever/chills, loss of appetite, nausea/vomiting and shortness of breath. Patient did receive the following treatments prior to arrival, none Related Data Home Medications Medication Instructions Recorded Confirmed acetaminophen [Tylenol] 500 mg PO PRN PRN 04/25/21 04/25/21 amoxicillin-pot clavulanate 1 tab PO BID 5 Days #10 tab 04/25/21 [Augmentin] ibuprofen 400 mg PO PRN PRN 04/25/21 04/25/21 Previous Rx's Medication Instructions Recorded amoxicillin-pot clavulanate 1 tab PO BID 5 Days #10 tab 04/25/21 [Augmentin] Allergies Allergy/AdvReac Type Severity Reaction Status Date / Time epinephrine AdvReac Severe PULSE Unverified 04/25/21 13:49 DROPS, BP DROPS General Stated Complaint: Abd Prob KT: 3 Review of Systems <NIEVES Miller - Last Filed: 04/25/21 17:08> Constitutional Constitutional: Reports as per HPI, Denies chills, Denies fatigue, Denies fever(s) and Denies headache(s) ENT Ears, Nose, Mouth, and Throat: Denies headache(s) Cardiovascular Cardiovascular: Reports as per HPI, Denies chest pain and Denies dyspnea Respiratory Respiratory: Reports as per HPI, Denies cough and Denies dyspnea Gastrointestinal Gastrointestinal: Reports as per HPI Musculoskeletal Musculoskeletal: Reports as per HPI and Denies back pain Integumentary/Breasts Skin/Breast: Reports as per HPI and Denies rash Neurologic Neurologic: Reports as per HPI and Denies headache(s) Endocrine Endocrine: Denies fatigue PFSH <NIEVES Miller - Last Filed: 04/25/21 17:08> Surgical History Ligation of fallopian tube (04/09/14) BTL [facility]. Social History Smoking/Tobacco Use Status: Former Tobacco Use Smoking risk assessment performed?: Yes Alcohol Intake: current Alcohol Intake frequency: holidays/special occasions only Drug use: Daily Substance use type: marijuana Do you feel safe at home: Yes Do you feel safe in your relationship?: Yes Exam <NIEVES Miller Last Filed: 04/25/21 17:08> Const General: cooperative, healthy appearing, comfortable, no acute distress and well developed Nutritional Appearance: average body habitus and well nourished Orientation: alert and awake HENMT Head: normal to inspection Mouth: moist mucous membranes Resp Effort & Inspection: normal respiratory effort, able to speak in complete sentences and no respiratory distress Auscultation: clear to auscultation bilaterally, no rales, no rhonchi and no wheezes Cardio Rate: regular rate Rhythm: regular rhythm Heart Sounds: S1 normal and S2 normal GI Inspection: normal to inspection Palpation: soft, no hepatosplenomegaly, not firm, no guarding, no hernias, no masses, not rigid and tender in the RLQ and at McBurney's point Percussion: normal to percussion Auscultation: normal bowel sounds Back/Spine/Pelvis Back: no CVA tenderness Skin General skin exam: no rashes or lesions noted Trauma: no lacerations or abrasions Neuro General: patient alert and patient awake Cognition: normal cognition Speech: speech normal Gait: normal gait Psych Appearance: grossly normal and well kempt Mental Status: mental status grossly normal Speech and Movement: speech and movement normal Course <NIEVES Miller Last Filed: 04/25/21 17:08> Vital Signs Vital signs: Vital Signs Temperature 37.3 C 04/25/21 13:44 Pulse 66 04/25/21 13:44 Respiratory Rate 18 04/25/21 13:44 Blood Pressure 107/63 04/25/21 13:44 Pulse Oximetry 98 04/25/21 13:44 Temperature 37.3 C 04/25/21 13:44 Temperature Source Skin 04/25/21 13:44 Pulse 66 04/25/21 13:44 Respiratory Rate 18 04/25/21 13:44 Respiratory Effort Non-Labored 04/25/21 13:48 Blood Pressure 107/63 04/25/21 13:44 Blood Pressure Position Sitting 04/25/21 13:44 Pulse Oximetry 98 04/25/21 13:44 Oxygen Delivery Method Room Air 04/25/21 13:44 Oxygen Flow Rate 0 04/25/21 13:44 Pain Level 6 04/25/21 13:44 Sign Out <NIEVES Miller - Last Filed: 04/25/21 17:08> Sign Out Data: Sign Out Comment: Care transition to [facility] with imaging pending. Patient on clindamycin x2 days for dental infection. Tooth improved. However, has lower abdominal tenderness, focal over McBurney's point. Last updated by Karen Florian PA at 04/25/21 16:19
--- NOTE | 2021-04-25 14:30 | DI.CT_ITS ---
Exam(s) CT ABDOMEN PELVIS W EXAM: CT ABDOMEN PELVIS W CLINICAL HISTORY: RLQ pain. TECHNIQUE: Imaging Protocol: Axial computed tomography images with coronal and sagittal reformatted images were created and reviewed CONTRAST MATERIAL: Intravenous: Omnipaque 100cc Oral: None COMPARISON: No exams were available for comparison FINDINGS: VISUALIZED LUNG BASES: Mild benign-appearing increased markings in the medial segment of the right mi ddle lobe. There are no pleural effusions.. ABDOMEN: There is no ascites. LIVER: There is an anatomic variant here. The left hepatic lobe extends across the midline to in gol f the spleen. There is a benign-appearing lesion in the right hepatic lobe which measures approximat celso 12 x 11 millimeters. Difficult to characterize on this type of study but is probably an hemangio ma. There are no other focal hepatic lesions evident. No dilatation of intrahepatic ducts. GALLBLADDER/BILIARY: No obvious gallbladder pathology. CBD is not dilated. PANCREAS: No evidence of pancreatic mass nor dilatation of the pancreatic duct. SPLEEN: Spleen is not enlarged. No obvious intrasplenic lesions. Splenic and portal veins are paten t. ADRENALS: There are no significant adrenal masses. KIDNEYS:No cysts evident. No solid renal masses. No calculi nor hydronephrosis.. ABDOMINAL AORTA: Abdominal aorta is not enlarged. LYMPH NODES:There is no retroperitineal nor paraaortic adenopathy. ABDOMINAL WALL: No evidence of significant anterior abdominal wall hernia. GI: There is no evidence of bowel obstruction, free air, nor abscess. PELVIS: GI: No evidence of appendicitis.No evidence of sigmoid diverticulitis. LYMPH NODES: There is no intrapelvic nor inguinal adenopathy. REPRODUCTIVE: Uterus size is age-appropriate. No abnormal findings in the right adnexa. Left ovary measures 3.2 x 2.5 cm. Contains a 2 x 1.6 cm cyst. No free fluid in the pelvis evident. URINARY BLADDER: No calculi nor obvious masses evident OSSEOUS: No significant osseous lesions. IMPRESSION: 1. There is a benign-appearing lesion in the right hepatic lobe measuring approximately 12 x 11 nevaeh meters. Although somewhat difficult to characterize on this type of study, it probably has the appea joleen of a benign hemangioma. Follow-up ultrasound recommended to see if it exhibits typical hyperec hoic appearance. 2. There is 2 centimeters cyst in left ovary. No free fluid. No right adnexal findings. 3. 4. RADIATION DOSE DELIVERED: 779.53mGy.cm Total DLP DATA REPOSITORY: All CT scans at this facility are submitted to the National Radiology Data Registry (NRDR) Dose Index Registry (DIR) with the [employer] [place] [employer] [employer] (ACR). RADIATION OPTIMIZATION: All CT scans at this facility use at least one of these dose optimization te chniques: automated exposure control; mA and/or kV adjustment per patient size (includes targeted exa ms where dose is matched to clinical indication); or iterative reconstruction.
[2021-04-25] MEDS: Normal Saline 1,000 ML 1000 ML IV (15:08)
[2021-04-25 15:20] LABS: Abs Immature Grans 0.04 10^3/uL (0.0-0.06); Absolute Basophil Count 0.05 10^3/uL (0.0-0.2); Absolute Lymphocyte Count 1.79 10^3/uL (1.2-3.4); Absolute Monocyte Count 0.54 10^3/uL (0.1-0.8); Absolute Neutrophil Count 7.75 10^3/uL (1.2-6.7); Basophils % 0.5; HCT 41.3 % (36.0-46.0); HGB 13.9 g/dL (11.2-15.7); Immature Grans % 0.4; Lymphocytes % 17.4; MCH 29.8 pg (27.0-33.0); MCHC 33.7 % (32.0-36.0); MCV 88.4 fL (80-95); MPV 10.3 fL (8.0-11.0); Monocytes % 5.3; Neutrophils % 75.4; Nucleated RBC 0 %; Platelet Count 297 10^3/uL (130-400); RBC 4.67 10^6/uL (3.93-5.22); RDW 12.4 % (11.7-14.6); RDW-SD 40.1 fL; WBC 10.27 10^3/uL (4.4-10.8)
[2021-04-25 15:29] LABS: Bilirubin Negative (Negative); Blood Negative (Negative); Clarity Clear (Clear); Glucose Negative (Negative); Ketones Negative (Negative); Leukocyte Esterase Negative (Negative); Nitrite Negative (Negative); Specific Gravity 1.015 (1.005-1.025); Urobilinogen 0.2 EU/dL (Up TO 0.2)
[2021-04-25 15:32] LABS: Lipase 77 U/L (73-393)
[2021-04-25 15:37] LABS: ALT 20 U/L (14-59); AST 12 U/L (15-37); Albumin 4.5 g/dL (3.4-5.0); Alkaline Phosphatase 58 U/L (46-116); Anion Gap 7.6 mmol/L (3-11); BUN 10 mg/dL (7-18); Bilirubin, Total 0.8 mg/dL (0.2-1.0); CO2 28.4 mmol/L (21.0-32.0); CREATININE 0.7 mg/dL (0.55-1.02); Calcium 10.8 mg/dL (8.5-10.1); Chloride 105 mmol/L (98-107); Glucose 96 mg/dL (74-106); Potassium 3.7 mmol/L (3.5-5.1); Sodium 141 mmol/L (136-145); Total Protein 8.2 g/dL (6.4-8.2)
[2021-04-25] MEDS: Normal Saline - Diluent 50 ML VIAL IV (15:59)
[2021-04-25] MEDS: Omnipaque 350 MG/ML 100 ML BTL IJ (15:59)
--- NOTE | 2021-04-25 16:32 | DI.VRAD_ITS ---
PROCEDURE INFORMATION: Exam: CT Abdomen And Pelvis With Contrast Exam date and time: 04/25/2021 2:35 PM Age: 35 years old Clinical indication: Abdominal pain; Generalized TECHNIQUE: Imaging protocol: Computed tomography of the abdomen and pelvis with contrast. Total images: 1116 Contrast material: OMNIPAQUE 350; Contrast volume: 100 ml; Contrast route: INTRAVENOUS (IV); COMPARISON: US PELVIS TRANSVAG 03/04/2016 5:23 PM FINDINGS: Liver: There is a heterogeneous 1.0 x 1.0 cm right liver mass, incompletely characterized. Gallbladder and bile ducts: Normal. No calcified stones. No ductal dilation. Pancreas: Normal. No ductal dilation. Spleen: Normal. No splenomegaly. Adrenal glands: Normal. No mass. Kidneys and ureters: Normal. No hydronephrosis. Stomach and bowel: Unremarkable. No obstruction. No mucosal thickening. Appendix: The appendix is normal (series 4 image 59). Intraperitoneal space: Unremarkable. No free air. No significant fluid collection. Vasculature: Unremarkable. No abdominal aortic aneurysm. Lymph nodes: Unremarkable. No enlarged lymph nodes. Urinary bladder: Unremarkable as visualized. Reproductive: Unremarkable as visualized. Bones/joints: Unremarkable. No acute fracture. Soft tissues: Unremarkable. IMPRESSION: 1. Heterogeneous 1 cm right liver mass. Nonemergent ultrasound could be obtained for initial characterization. 2. No acute disease in abdomen or pelvis. Normal appendix. Dictated and Authenticated by: Luis Quezada MD. Ordering:BISI Jones MD
== END 2021-04-25 17:05 | disposition home or self-care (01) ==
PROVIDERS: Physician Assistant; Emergency Provider Registered Nurse Emergency; PCP Nurse Practitioner Family
DX: R14.0 Abdominal distension (gaseous) (principal)
CPT/HCPCS: 80053; 81025; 83690; 96360; 99285; 74177; 81003; 85025; 99283; J3490

== ENCOUNTER 2021-05-01 08:47 | Emergency (ER) | payer MEDICAID, SELFPAY ==
[2021-05-01 08:51] VITALS: BP 99/66; PULSE 70; RESP 18; TEMP 36.6; O2SAT 98
--- NOTE | 2021-05-01 08:54 | ED.GENADUL_ITS ---
Discharge Plan Disposition Patient Disposition: HOME Condition: Stable Discharge Details Clinical Impression: Cephalgia Primary Care Provider: Burak Yoder ED Provider: Lewis Broderick Home Meds and New Rx's Prescriptions: Continued ibuprofen 400 mg Tablet 400 mg PO PRN PRNRF: 0 acetaminophen [Tylenol] 325 mg Capsule 500 mg PO PRN PRNRF: 0 amoxicillin-pot clavulanate 875-125 mg tablet 1 tab PO BID RF: 0 Discharge Instructions Instructions: General Headache (ED) Additional Instructions: Work-up in the ER does not reveal any obvious emergent process. Continue taking amoxicillin as directed. Follow-up with your primary care provider on Monday as already scheduled. I also recommend contacting your dentist on Monday for prompt outpatient reevaluation. [id number] Tylenol and/or Motrin as directed for discomfort. Please watch for new or worsening symptoms and return to the ER for any concerns. Discharge Data Discharge Date/Time-TO BE ENTERED AT DEPARTURE: 05/01/21 11:37 Medical Decision Making 35-year-old female who is currently being treated for a dental infection presents complaining of left eye bulging, global headache worse in the front, concerned that her dental infection may have spread. Tooth #18 does appear to be broken but no signs of infection. She appears well, nontoxic, neurologically intact, no nuchal rigidity, she is afebrile. Patient does not want any medications for symptomatic control. Obtained intraocular pressure of the left eye, normal. Will obtain IV access, CBC, CMP, and CT imaging of the maxillofacial region with contrast for further evaluation of her ongoing symptoms. Patient is resting comfortably, we discussed her laboratory values, no evidence of emergent process. CT imaging also unremarkable. Discussed options with patient. She reports feeling relieved and is comfortable discharge. She does not want to take any [id number]-[id number] medication for her migraine. She will continue taking her Augmentin as directed. She was given strict discharge and return precautions. She will follow up with her primary care provider as already scheduled on Monday we will reach out to her dentist on Monday as well This documentation was generated using [employer] system, please disregard any oddities of phrase or misspellings. Medical Records Medical records reviewed: Yes I reviewed the patient's medical records. Imaging Data Radiologic Study: Attestation: I personally reviewed and interpreted this imaging study as follows: Imaging: CT Scan Radiologist's impression: Maxillofacial CT with contrast read by virtual radiology as no acute findings Lab Data Lab results reviewed: Yes I reviewed the patient's lab results. Labs: Laboratory Tests Range/Units 05/01/21 05/01/21 09:20 09:20 WBC (4.4-10.8) 10^3/uL 9.37 RBC (3.93-5.22) 10^6/uL 4.97 Hgb (11.2-15.7) g/dL 14.7 Hct (36.0-46.0) % 43.5 MCV (80-95) fL 87.5 MCH (27.0-33.0) pg 29.6 MCHC (32.0-36.0) % 33.8 RDW (11.7-14.6) % 12.3 Plt Count (130-400) 10^3/uL 294 MPV (8.0-11.0) fL 9.7 Immature Gran % 0.3 Neutrophils % 79.2 Lymphocytes % 12.5 Monocytes % 6.4 Eosinophils % 1.2 Basophils % 0.4 Nucleated RBC % % 0 Absolute Neutrophils (1.2-6.7) 10^3/uL 7.42 H Absolute Lymphocytes (1.2-3.4) 10^3/uL 1.17 L Absolute Monocytes (0.1-0.8) 10^3/uL 0.60 Absolute Eosinophils (0.0-0.7) 10^3/uL 0.11 Absolute Basophils (0.0-0.2) 10^3/uL 0.04 Sodium (136-145) mmol/L 142 Potassium (3.5-5.1) mmol/L 3.7 Chloride (98-107) mmol/L 104 Carbon Dioxide (21.0-32.0) mmol/L 28.1 Anion Gap (3-11) mmol/L 9.9 BUN (7-18) mg/dL 12 Creatinine (0.55-1.02) mg/dL 0.7 Estimated GFR/1.73 m2 (mL/min/1.73m2) >= 60.00 Glucose (74-106) mg/dL 92 Calcium (8.5-10.1) mg/dL 10.6 H Total Bilirubin (0.2-1.0) mg/dL 1.2 H AST (15-37) U/L 12 L ALT (14-59) U/L 18 Alkaline Phosphatase (46-116) U/L 72 Total Protein (6.4-8.2) g/dL 8.4 H Albumin (3.4-5.0) g/dL 4.5 TSH (0.36-3.74) uIU/mL 1.55 HPI General Mode of arrival: ambulatory . Date/Time Provider Initiated Documentation: 05/01/21 08:48 . Limitations to Documentation: no limitations . Information obtained by: patient . HPI Narrative: This is a 35-year-old female, denies significant past medical history, presenting to the ER reporting left lower dental infection ongoing for the last week, now with global headache worse in the front and pressure behind her right eye. Patient states that the headache and eye pressure began yesterday. Patient states that she does get similar migraines around her menses which did just begin and this very well could be related to that but given her recent dental infection she would like to be sure that the infection has not spread. She denies fever, visual changes, ea r pain, neck pain, chest pain, shortness of breath, abdominal pain, nausea, vomiting, numbness, tingling, weakness. Patient states that she does not like taking any medications and therefore has not taken any Tylenol or Motrin for her discomfort. Patient is scheduled to be seen by her primary care provider on Monday afternoon. She has not called her dentist for her ongoing dental issues. Overall she believes the antibiotics have helped because she reports that her dental pain and facial pain has overall improved. She did not take her Augmentin last night. Related Data Home Medications Medication Instructions Recorded Confirmed acetaminophen [Tylenol] 500 mg PO PRN PRN 04/25/21 05/01/21 ibuprofen 400 mg PO PRN PRN 04/25/21 05/01/21 amoxicillin-pot clavulanate 1 tab PO BID 05/01/21 05/01/21 Allergies Allergy/AdvReac Type Severity Reaction Status Date / Time epinephrine AdvReac Severe PULSE Unverified 05/01/21 08:59 DROPS, BP DROPS General KT: 3 Review of Systems Constitutional Constitutional: Denies fever(s) and Reports headache(s) Eyes Eyes: Denies change in vision ENT Ears, Nose, Mouth, and Throat: Reports headache(s) and Denies neck pain Cardiovascular Cardiovascular: Denies chest pain and Denies dyspnea Respiratory Respiratory: Denies dyspnea Gastrointestinal Gastrointestinal: Denies abdominal pain, Denies nausea and Denies vomiting Musculoskeletal Musculoskeletal: Denies neck pain, Denies numbness and Denies tingling Integumentary/Breasts Skin/Breast: Denies rash Neurologic Neurologic: Reports headache(s), Denies numbness and Denies tingling [facility] Surgical History Ligation of fallopian tube (04/09/14) BTL [facility]. Social History Smoking/Tobacco Use Status: Former Tobacco Use Smoking risk assessment performed?: Yes Alcohol Intake: current Alcohol Intake frequency: holidays/special occasions only Drug use: Daily Substance use type: marijuana Do you feel safe at home: Yes Do you feel safe in your relationship?: Yes Exam Const General: cooperative, healthy appearing, comfortable and no acute distress Orientation: alert, awake and oriented x3 HENMT Head: normal to inspection, normocephalic and atraumatic Ears: external ears normal, TM's normal bilaterally and EAC's normal General nose exam: external nose normal Face and sinus: normal facial exam and sinuses nontender Mouth: oral mucosae normal and moist mucous membranes Teeth image: 1. Tooth #18 with a posterior aspect fracture. There is no tenderness, sw elling, drainage. No signs of abscess. No trismus. Airway is patent. Throat: posterior oropharynx normal Eyes General: appearance normal, both eyes and all related structures Alignment and Position: alignment normal Periorbital: periorbital findings normal Eyelids: eyelids normal Conjunctivae: conjunctivae normal Sclera: sclerae normal Cornea: corneas normal Pupils: PERRL EOM: EOM intact bilaterally Direct ophthalmoscopy: normal light reflex Other: Obtained intraocular pressure of the left eye twice, 12, 13 respectively. Neck Neck: normal visual inspection, full ROM, no meningeal signs, trachea midline, supple and nontender Resp Effort & Inspection: normal respiratory effort and able to speak in complete sentences Auscultation: clear to auscultation bilaterally Cardio Rate: regular rate Rhythm: regular rhythm GI Palpation: soft and nontender Back/Spine/Pelvis Back: No back tenderness Skin General skin exam: no rashes or lesions noted Neuro General: patient alert, patient awake, patient oriented x3, moves all extremities and no focal motor deficits Cognition: normal cognition Speech: speech normal Gait: normal gait Motor: muscle tone normal throughout Sensory Exam: no sensory deficits noted Extrem General: normal to inspection Psych Appearance: grossly normal Mental Status: mental status grossly normal
--- NOTE | 2021-05-01 09:15 | DI.CT_ITS ---
Exam(s) CT FACIAL W EXAM: CT FACIAL W CLINICAL HISTORY: L sided dental infection, eye pain. TECHNIQUE: Imaging Protocol: Axial computed tomography images with coronal and sagittal reformatted images were created and reviewed CONTRAST MATERIAL: Intravenous: Omnipaque 350 Contrast volume:100 mL COMPARISON: No exams were available for comparison FINDINGS: Facial Bones: No definite fracture is noted in facial bones. Sinuses and Mastoids: Unremarkable. Globes, extraocular muscles, optic nerves and retrobulbar fat: Normal. Upper aerodigestive tract: Normal. Mandible and bilateral temporomandibular joints: Normal. Soft tissues: Normal. No evidence of an abscess. IMPRESSION: No acute abnormality. RADIATION DOSE DELIVERED: 364.69mGy.cm Total DLP DATA REPOSITORY: All CT scans at this facility are submitted to the National Radiology Data Registry (NRDR) Dose Index Registry (DIR) with the [employer] (A[employer]). RADIATION OPTIMIZATION: All CT scans at this facility use at least one of these dose optimization te chniques: automated exposure control; mA and/or kV adjustment per patient size (includes targeted exa ms where dose is matched to clinical indication); or iterative reconstruction.
[2021-05-01 09:29] LABS: Abs Immature Grans 0.03 10^3/uL (0.0-0.06); Absolute Basophil Count 0.04 10^3/uL (0.0-0.2); Absolute Eosinophil Count 0.11 10^3/uL (0.0-0.7); Absolute Lymphocyte Count 1.17 10^3/uL (1.2-3.4); Absolute Neutrophil Count 7.42 10^3/uL (1.2-6.7); Basophils % 0.4; Eosinophils % 1.2; HCT 43.5 % (36.0-46.0); HGB 14.7 g/dL (11.2-15.7); Immature Grans % 0.3; Lymphocytes % 12.5; MCH 29.6 pg (27.0-33.0); MCHC 33.8 % (32.0-36.0); MCV 87.5 fL (80-95); MPV 9.7 fL (8.0-11.0); Monocytes % 6.4; Neutrophils % 79.2; Nucleated RBC 0 %; Platelet Count 294 10^3/uL (130-400); RBC 4.97 10^6/uL (3.93-5.22); RDW 12.3 % (11.7-14.6); RDW-SD 39.8 fL; WBC 9.37 10^3/uL (4.4-10.8)
[2021-05-01 09:41] LABS: ALT 18 U/L (14-59); AST 12 U/L (15-37); Albumin 4.5 g/dL (3.4-5.0); Alkaline Phosphatase 72 U/L (46-116); Anion Gap 9.9 mmol/L (3-11); BUN 12 mg/dL (7-18); Bilirubin, Total 1.2 mg/dL (0.2-1.0); CO2 28.1 mmol/L (21.0-32.0); CREATININE 0.7 mg/dL (0.55-1.02); Calcium 10.6 mg/dL (8.5-10.1); Chloride 104 mmol/L (98-107); Glucose 92 mg/dL (74-106); Potassium 3.7 mmol/L (3.5-5.1); Sodium 142 mmol/L (136-145); Total Protein 8.4 g/dL (6.4-8.2)
[2021-05-01] MEDS: Omnipaque 350 MG/ML 100 ML BTL IJ (09:42)
[2021-05-01] MEDS: Normal Saline - Diluent 50 ML VIAL IV (09:43)
[2021-05-01] MEDS: Normal Saline Flush 10 ML SYR IVP (09:44)
[2021-05-01 10:06] LABS: TSH (W/Ref FT4) 1.55 uIU/mL (0.36-3.74)
--- NOTE | 2021-05-01 10:53 | DI.VRAD_ITS ---
PROCEDURE INFORMATION: Exam: CT Maxillofacial With Contrast Exam date and time: 05/01/2021 9:17 AM Age: 35 years old Clinical indication: Face pain TECHNIQUE: Imaging protocol: Computed tomography images of the face with intravenous contrast. COMPARISON: No relevant prior studies available. FINDINGS: Orbital cavity: Orbits are normal. Globes are unremarkable. Bones/joints: No acute fracture. Paranasal sinuses: Normal. No air-fluid levels. Soft tissues: Unremarkable. IMPRESSION: No acute findings. Dictated and Authenticated by: Marsha May MD. Ordering:LESTER Saucedo MD
== END 2021-05-01 11:37 | disposition home or self-care (01) ==
PROVIDERS: Emergency Provider Physician Assistant; PCP Nurse Practitioner Family
DX: R51.9 Headache, unspecified (principal)
CPT/HCPCS: 36415; 80053; 99285; 70487; 84443; 85025; 99283; J3490

== ENCOUNTER 2021-05-19 02:53 | Outpatient (CLI) | payer MEDICAID, SELFPAY ==
--- NOTE | 2021-05-19 | DI.US_ITS ---
Exam(s) US ABDOMEN EXAM: US ABDOMEN CLINICAL HISTORY: INCIDENTAL LIVER LESION RT LOBE ON CT, F/U ABNL CT, K76.9 TECHNIQUE: Ultrasound abdomen performed using standard protocol. COMPARISON: CT CT ABDOMEN PELVIS W from 04/25/[address] ABDOMEN PELVIS W from 04/25/2021 FINDINGS: LIVER: Normal size and echogenicity. Homogeneous, smoothly marginated hyperechoic lesion measuring 1 .8 cm in maximal dimension, consistent with a hemangioma... GALLBLADDER: 11 millimeter mobile stone. No evidence of wall thickening. No pericholecystic fluid id entified. SHELTON'S SIGN: Negative. BILIARY SYSTEM: No intrahepatic or extrahepatic biliary ductal dilation. KIDNEYS: Kidneys are symmetric in size. No evidence of renal calculi. No evidence of hydronephrosis. No renal mass or cyst identified. PANCREAS: Normal where visualized. SPLEEN: Not enlarged. ABDOMINAL AORTA AND IVC: Visualized portions normal caliber. ASCITES: None seen. IMPRESSION: 1.8 centimeter hyperechoic lesion, consistent with a hemangioma. Mobile gallstone. DATA REPOSITORY:
== END 2021-05-19 03:13 ==
PROVIDERS: PCP Nurse Practitioner Family; Visit Provider Nurse Practitioner
DX: K80.20 Calculus of gallbladder without cholecystitis without obstruction; R91.8 Other nonspecific abnormal finding of lung field; R91.1 Solitary pulmonary nodule; D18.09 Hemangioma of other sites
CPT/HCPCS: 76700

== ENCOUNTER 2021-09-05 20:30 | Emergency (ER) | payer MEDICAID, SELFPAY ==
[2021-09-05 20:38] VITALS: BP 131/83; PULSE 80; RESP 18; TEMP 36.3; O2SAT 97
--- NOTE | 2021-09-05 20:45 | DI.RAD_ITS ---
Exam(s) XR TOE RT GREAT EXAM: XR TOE RT GREAT CLINICAL HISTORY: pain in mtp joint after cut, r/o fb. TECHNIQUE: 2D digital imaging was performed. COMPARISON: No exams were available for comparison FINDINGS: There is no evidence of fracture nor dislocation. No radiopaque foreign body. No osseous lesions no r erosions. IMPRESSION: No fracture. No radiopaque foreign body evident. DATA REPOSITORY: RADIATION DOSE DELIVERED:
--- NOTE | 2021-09-05 21:05 | ED.GENADUL_ITS ---
Discharge Plan Disposition Patient Disposition: HOME Condition: Good Discharge Details Clinical Impression: Pain of right great toe Primary Care Provider: Burak Yoder ED Provider: Dutch Kellogg Home Meds and New Rx's Prescriptions: Continued ibuprofen 400 mg Tablet 400 mg PO PRN PRNRF: 0 acetaminophen [Tylenol] 325 mg Capsule 500 mg PO PRN PRNRF: 0 Discharge Instructions Instructions: Complex Regional Pain Syndrome (DC), Arthralgia (ED) Additional Instructions: At this time your x-ray shows no evidence of foreign body that can be seen. Please follow-up closely with your primary care provider for reassessment. Please call the radiology department tomorrow morning to set up your ultrasound appointment for your leg. Please use Tylenol, Motrin and ice as needed for pain or swelling. Keep your leg elevated as often as you can. If you notice any worsening of your symptoms, or any new symptoms such as vomiting, diarrhea, fever, chills, shortness of breath, chest pain, numbness, weakness, or fainting , please return immediately to the emergency department for reevaluation. Please follow up with your primary care provider as soon as possible for reassessment and reevaluation. As always, it was a pleasure participating in your medical care today. Referrals: Burak Yoder PA [Primary Care Provider] - Medical Decision Making This is a 35-year-old female who presents today for evaluation of right toe pain. 3-1/2 weeks ago she cut the plantar aspect of her great toe just distal to the MTP joint on a cat Food can lid. It was metal, she felt it was a clean cut. She washed it, and it healed well over the next few weeks. However over the last day or so she has noticed increased swelling in her foot, and pain in her calf, thigh, and many of her joints in general. She also has continued and slightly worsening pain in the great toe itself, and notes a sensation of tenseness in her great toe, second, and third digit. She noticed that the symptoms are essentially only present and or more pronounced when she is standing for a few minutes. She has noted that all of these started to come on when she started her period. She denies any new trauma. Pain is made worse with movement and palpation. She denies any fever or chills. She has been checking her temperature at home. Patient's tetanus status is up-to-date per patient. Patient denies any history of gout or autoimmune conditions, but she does have a family history of rheumatoid arthritis. She denies any history of DVTs or pulmonary emboli. She denies any recent long trips surgeries or procedures. No other complaints at this time. No other modifying factors. Physical exam demonstrates mild tenderness around the MTP joint, the laceration itself is well-healed, with no evidence of infection or redness. No evidence of significant swelling, vascular compromise, or neurologic compromise. Bedside limited ultrasound shows no evidence of large DVT or other abnormality. Symptoms appearing consistent with DVT. X-ray shows no evidence of foreign body in the joint. With no evidence of active infection at this time, no other significant acute abnormality that is noted on exam I do feel this patient is stable for discharge. Symptoms at this time do not appear consistent with gout, and currently appear inconsistent with an infected joint. Symptoms also appearing consistent with DVT, patient does not want anticoagulation at this time after risks and benefits are discussed. However out of an abundance of caution we will get an outpatient ultrasound for further assessment of the right lower extremity in general. Clinically her symptoms appear more concerning with a bit of reflex sympathetic dystrophy, and this may be related to her current menses, time uncertain. Will recommend Tylenol and Motrin and ice as needed for pain, ultrasound tomorrow, and close follow-up with PCP for reassessment. Discussed red flags for which to return. I have extensively reviewed the treatment plan and discharge instructions with the patient. I have addressed all patient concerns at this time. The patient was made aware of what symptoms to monitor for that would warrant a return to the emergency department. Discussed the plan with the patient, they demonstrate verbal understanding and agreement with our assessment and plan at this time. The documentation in this chart was dictated using [employer] dictation software. Please excuse any dictation errors. FINDINGS: Bones/joints: Normal. Soft tissues: No radiopaque foreign body identified. IMPRESSION: No evidence for radiopaque foreign body. Thank you for allowing us to participate in the care of your patient. Dictated and Authenticated by: Patricia Sorensen MD 09/05/2021 9:32 PM Eastern Time ([place] & [place]) HPI General Date/Time Provider Initiated Documentation: 09/05/21 20:31 . HPI Narrative: This is a 35-year-old female who presents today for evaluation of right toe pain. 3-1/2 weeks ago she cut the plantar aspect of her great toe just distal to the MTP joint on a cat Food can lid. It was metal, she felt it was a clean cut. She washed it, and it healed well over the next few weeks. However over the last day or so she has noticed increased swelling in her foot, and pain in her calf, thigh, and many of her joints in general. She also has continued and slightly worsening pain in the great toe itself, and notes a sensation of tenseness in her great toe, second, and third digit. She noticed that the symptoms are essentially only present and or more pronounced when she is standing for a few minutes. She has noted that all of these started to come on when she started her period. She denies any new trauma. Pain is made worse with movement and palpation. She denies any fever or chills. She has been checking her temperature at home. Patient's tetanus status is up-to-date per patient. Patient denies any history of gout or autoimmune conditions, but she does have a family history of rheumatoid arthritis. She denies any history of DVTs or pulmonary emboli. She denies any recent long trips surgeries or procedures. No other complaints at this time. No other modifying factors. Related Data Home Medications Medication Instructions Recorded Confirmed acetaminophen [Tylenol] 500 mg PO PRN PRN 04/25/21 09/05/21 ibuprofen 400 mg PO PRN PRN 04/25/21 09/05/21 Allergies Allergy/AdvReac Type Severity Reaction Status Date / Time epinephrine AdvReac Severe PULSE Unverified 09/05/21 20:44 DROPS, BP DROPS General Stated Complaint: Orthopedic KT: 3 Review of Systems All systems reviewed & are unremarkable except as noted in HPI and below [facility] Active Problem List (Updated 09/05/21 @ 21:30 by Dutch Kellogg DO) delivery (Acute) Abdominal bloating with cramps (Acute) Cephalgia (Acute) Pain of right great toe (Acute) Surgical History Ligation of fallopian tube (04/09/14) BTL KK. Social History Smoking/Tobacco Use Status: Former Tobacco Use Smoking risk assessment performed?: Yes Alcohol Intake: current Alcohol Intake frequency: holidays/special occasions only Drug use: Daily Substance use type: marijuana Do you feel safe at home: Yes Do you feel safe in your relationship?: Yes Exam Narrative Exam Narrative: 1.Const: Well-nourished, Well-developed, appearing stated age 2.Eyes: PERRL, no conjunctival injection, and symmetrical lids. 3.ENT: Atraumatic external nose and ears. Moist MM. Neck: Symmetric, trachea midline, No thyromegaly. 4.CVS: +S1/S2, No murmurs or gallops. Peripheral pulses 2+ and equal in all extremities. Brisk capillary refill in all extremities. 5.RESP: Unlabored respiratory effort. Clear to auscultation bilaterally. No wheezes rales or rhonchi 6.GI: Soft, Nontender/Nondistended, No hepatosplenomegaly. No guarding or rebound. 7.MSK: Normocephalic/Atraumatic, Extremities w/o deformity. No cyanosis or clubbing, evaluation of the great toe on the right foot demonstrates no redness or significant edema. Bedside ultrasound shows no evidence of large abscess, or diminished vascular supply. Dorsalis pedis and posterior tibial pulse +2 bilaterally, capillary refill brisk in all toes. Patient demonstrates intact good sensation in all toes. Patient is able to flex and extend the great toe slightly, but is limited secondary to pain. No redness to suggest gout or cellulitis. Laceration which is on the plantar aspect demonstrates a well- healed cut, no bleeding, good callus is present, with good wound edge reapproximation. No evidence of dehiscence. No evidence of drainage. No edema of the lower extremities bilaterally. No area of focal tenderness on the calf or thigh, but the patient does have generalized soreness throughout all aspects. I did get the patient up and had her stand to reproduce her symptoms, there does appear to be a slight increase in vascular congestion in the right lower extremity when compared to the left lower extremity after the patient was standing for a few minutes. No rex edema though, no evidence of vascular compromise. Limited bedside ultrasound demonstrates no clear evidence of deep vein thr ombosis for the calf, posterior tibial space, or thigh. Popliteal artery, and distal arterial vasculature appears notably well intact with good flow, and no gross abnormalities. 8.Skin: Warm, Dry. No rashes or lesions. 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 Sensation grossly intact, no focal neurologic deficits. 10.Psych: (AAO) x3. Appropriate mood and affect Course Vital Signs Vital signs: Vital Signs Temperature 36.3 C L 09/05/21 20:38 Pulse 80 09/05/21 20:38 Respiratory Rate 18 09/05/21 20:38 Blood Pressure 131/83 09/05/21 20:38 Pulse Oximetry 97 09/05/21 20:38 Temperature 36.3 C L 09/05/21 20:38 Temperature Source Temporal Artery Scan 09/05/21 20:38 Pulse 80 09/05/21 20:38 Respiratory Rate 18 09/05/21 20:38 Respiratory Effort 09/05/21 20:46 Blood Pressure 131/83 09/05/21 20:38 Blood Pressure Position Sitting 09/05/21 20:38 Pulse Oximetry 97 09/05/21 20:38 Oxygen Delivery Method Room Air 09/05/21 20:38 Oxygen Flow Rate 0 09/05/21 20:38 Pain Level 0 09/05/21 20:38 Comment 09/05/21 20:38 PAWSS Have you Been Recently Intoxicated or Drunk Within the Last 30 days?: No Have you Ever Experienced Previous Episodes of Alcohol Withdrawal?: No Have you ever Experienced Withdrawal Seizures?: No Have you ever Experienced Delirium Tremens(DT)s?: No Have you ever undergone Alcohol Rehabilitation Treatment (i.e, inpt ot outpatient treatment programs)?: No Have you ever Experienced Blackouts?: No Have you ever Combined Alcohol with other Downers within the last 90 days?: No Have you ever Combined Alcohol with any other Substance of Abuse during the last 90 days?: No Result: 0
--- NOTE | 2021-09-05 21:32 | DI.VRAD_ITS ---
PROCEDURE INFORMATION: Exam: XR Right Toe(s) Exam date and time: 09/05/2021 8:57 PM Age: 35 years old Clinical indication: Other: Pain in mtp joint after cut, R/O fb TECHNIQUE: Imaging protocol: XR Right toes. Views: Minimum 2 views. COMPARISON: No relevant prior studies available. FINDINGS: Bones/joints: Normal. Soft tissues: No radiopaque foreign body identified. IMPRESSION: No evidence for radiopaque foreign body. Dictated and Authenticated by: Patricia Sorensen MD. Ordering:MARY Judd MD
== END 2021-09-05 21:52 | disposition home or self-care (01) ==
PROVIDERS: Emergency Provider Student in an Organized Health Care Education/Training Program; PCP Nurse Practitioner Family
DX: M79.674 Pain in right toe(s) (principal)
CPT/HCPCS: 99283; 73660

== ENCOUNTER 2021-09-06 09:22 | Outpatient (CLI) | payer MEDICAID, SELFPAY ==
--- NOTE | 2021-09-06 | DI.US_ITS ---
Exam(s) US LOWER EXTREMITY VENOUS RT EXAM: US LOWER EXTREMITY VENOUS RT CLINICAL HISTORY: RT LEG SWELLING, ? DVT TECHNIQUE: Grayscale, color, and doppler imaging of the deep venous system of the right lower extrem ity was performed. COMPARISON: No exams were available for comparison FINDINGS: There is no evidence of intraluminal thrombus and there is normal compression and augmentation demons trated within the common femoral vein, femoral vein, and popliteal vein. In the ipsilateral calf the interrogated veins also exhibit normal compression/ augmentation properti es. The ipsilateral saphenofemoral junction is patent. IMPRESSION: 1. No evidence of DVT in the right lower extremity. 2. DATA REPOSITORY:
== END 2021-09-06 09:42 ==
PROVIDERS: PCP Nurse Practitioner Family; Visit Provider Student in an Organized Health Care Education/Training Program
DX: R22.41 Localized swelling, mass and lump, right lower limb (principal)
CPT/HCPCS: 93971

== ENCOUNTER 2021-09-19 13:39 | Emergency (ER) | payer MEDICAID, SELFPAY ==
[2021-09-19 13:45] VITALS: BP 116/74; PULSE 73; RESP 16; TEMP 37.1; O2SAT 98
--- NOTE | 2021-09-19 14:42 | ED.GENADUL_ITS ---
Discharge Plan Disposition Patient Disposition: HOME Condition: Stable Discharge Details Clinical Impression: Pain of right great toe, Leg pain Primary Care Provider: Burak Yoder ED Provider: Lewis Broderick Home Meds and New Rx's Prescriptions: Continued ibuprofen 400 mg Tablet 400 mg PO PRN PRNRF: 0 acetaminophen [Tylenol] 325 mg Capsule 500 mg PO PRN PRNRF: 0 Discharge Instructions Instructions: Leg Pain (ED) Additional Instructions: At this time there are no signs of obvious infection. I have set you up for an ultrasound tomorrow, ultrasound will be calling you but if you do not hear from them first thing the morning I recommend you contact them to set up the appointment. I have also put you on the podiatry list and given you the name and number of our local lan/wan engineer. I recommend contacting the podiatry team tomorrow to discuss your ongoing discomfort need for outpatient reevaluation. Rest, elevate, cool and/or warm compresses every 2 hours for 20 minutes. [id number] Tylenol and/or Motrin as directed for discomfort. Please watch for new or worsening symptoms and return to the ER for any concern Referrals: Demond Woo DPM [[facility]FF PHYSICIAN] - Discharge Data Discharge Date/Time-TO BE ENTERED AT DEPARTURE: 09/19/21 15:22 Medical Decision Making 35-year-old female reports continuation of right foot pain as well as intermittent bilateral leg cramping. She is concerned that something more ser ious is going on. She is already had a negative x-ray and ultrasound of the right foot and leg. She is concerned that she may require an MRI of her right foot as well as an ultrasound of her left leg for further evaluation of DVT on that side. Unfortunately at this time it is the weekend, I cannot obtain a stat MRI and/or ultrasound. We discussed disposition. Plan is to refer to podiatry for further evaluation of acute on chronic right foot and toe pain. I will set the patient up for an ultrasound tomorrow of her left lower extremity. She appears well, nontoxic, hemodynamically stable. No evidence of tachycardia, tachypnea, hypoxemia. She afebrile. Clinically extremely low suspicion for acute DVT. Patient is comfortable with this plan and has no additional questions or concerns. Medical Records Medical records reviewed: Yes I reviewed the patient's medical records. HPI General Mode of arrival: ambulatory . Date/Time Provider Initiated Documentation: 09/19/21 13:42 . Limitations to Documentation: no limitations . Information obtained by: patient . HPI Narrative: This is a 35-year-old female, presenting to the ER complaining of right foot discomfort and occasional bilateral leg cramping. Patient states that 5 weeks ago she sustained a laceration to her right great toe when stepping on a cat food can. Her tetanus status is up-to-date. She did not seek medical attention at that time but subsequently came to the ER for concern of a right leg DVT, at that time had both an x-ray and an ultrasound that were negative. Patient states that she continues to have pain in her right great toe worse when standing or walking all day, occasionally it changes color, sometimes more red, other times blue. Patient states that she has a very busy schedule and has difficulty getting to the doctors, can only really get away on Monday. Patient states now she is concerned about a clot in her left leg given her intermittent cramping. She denies additional injury, chest pain, shortness of breath, fever. Related Data Home Medications Medication Instructions Recorded Confirmed acetaminophen [Tylenol] 500 mg PO PRN PRN 04/25/21 09/19/21 ibuprofen 400 mg PO PRN PRN 04/25/21 09/19/21 Allergies Allergy/AdvReac Type Severity Reaction Status Date / Time epinephrine AdvReac Severe PULSE Unverified 09/19/21 13:52 DROPS, BP DROPS General Stated Complaint: Cellulitis KT: 4 Review of Systems Constitutional Constitutional: Denies fever(s) and Denies weakness Cardiovascular Cardiovascular: Denies chest pain and Denies dyspnea Respiratory Respiratory: Denies dyspnea Musculoskeletal Musculoskeletal: Denies numbness, Reports stiffness and Denies tingling Integumentary/Breasts Skin/Breast: Denies rash Neurologic Neurologic: Denies numbness, Denies tingling and Denies weakness PFSH All Active Problems delivery (Acute) Abdominal bloating with cramps (Acute) Cephalgia (Acute) Pain of right great toe (Acute) Leg pain (Acute) Surgical History Ligation of fallopian tube (04/09/14) BTL KK. Social History Smoking/Tobacco Use Status: Former Tobacco Use Smoking risk assessment performed?: Yes Alcohol Intake: current Alcohol Intake frequency: holidays/special occasions only Drug use: Daily Substance use type: marijuana Do you feel safe at home: Yes Do you feel safe in your relationship?: Yes Exam Const General: cooperative, healthy appearing, comfortable and no acute distress Orientation: alert, awake and oriented x3 HENMT Head: normal to inspection, normocephalic and atraumatic Eyes General: appearance normal, both eyes and all related structures Conjunctivae: conjunctivae normal Neck Neck: normal visual inspection, trachea midline and supple Resp Effort & Inspection: normal respiratory effort and able to speak in complete sentences Cardio Rate: regular rate Rhythm: regular rhythm Skin General skin exam: no rashes or lesions noted Neuro General: patient alert, patient awake, moves all extremities and no focal motor deficits Cognition: normal cognition Speech: speech normal Gait: normal gait Sensory Exam: no sensory deficits noted Extrem General: full ROM and capillary refill normal Other: Patient has what appears to be a well healed wound to the plantar aspect at the base of the first right digit. There is no warmth, erythema. Patient is able to dorsi and plantar flex her toes and foot. Negative Homans' sign bilaterally. No calf tenderness bilaterally, no palpable cords bilaterally. W ithout obvious erythema, warmth, swelling. Normal pedal pulses bilaterally as well as capillary refill. Psych Appearance: grossly normal Mental Status: mental status grossly normal Course Vital Signs Vital signs: Vital Signs Temperature 37.1 C 09/19/21 13:45 Pulse 73 09/19/21 13:45 Respiratory Rate 16 09/19/21 13:45 Blood Pressure 116/74 09/19/21 13:45 Pulse Oximetry 98 09/19/21 13:45 Temperature 37.1 C 09/19/21 13:45 Temperature Source Skin 09/19/21 13:45 Pulse 73 09/19/21 13:45 Respiratory Rate 16 09/19/21 13:45 Respiratory Effort Non-Labored 09/19/21 13:45 Blood Pressure 116/74 09/19/21 13:45 Blood Pressure Position Sitting 09/19/21 13:45 Pulse Oximetry 98 09/19/21 13:45 Oxygen Delivery Method Room Air 09/19/21 13:45 Oxygen Flow Rate 0 09/19/21 13:45 Pain Level 6 09/19/21 13:45
--- NOTE | 2021-09-19 15:03 | NUR.NOTE ---
Nursing Note:Referral for podiatry in 1 - 2weeks for R great toe pain for x5 weeks.
--- NOTE | 2021-09-19 15:35 | NUR.NOTE ---
Nursing Note: Faxed request for bilateral lower extremity venous US for pain, no injury, to follow up in ER to be done Mon09/20/21.
== END 2021-09-19 15:22 | disposition home or self-care (01) ==
PROVIDERS: Emergency Provider Physician Assistant; PCP Nurse Practitioner Family
DX: M79.674 Pain in right toe(s) (principal); M79.605 Pain in left leg; M79.604 Pain in right leg
CPT/HCPCS: 99281; 99283

== ENCOUNTER 2021-12-02 01:11 | Outpatient (CLI) | payer MEDICAID, SELFPAY ==
--- NOTE | 2021-12-02 11:00 | DI.RAD_ITS ---
Exam(s) XR CHEST 2V PA LATERAL EXAM: XR CHEST 2V PA LATERAL CLINICAL HISTORY: SUBSTERNAL CHEST PAIN, R07.89, X 2 YEARS; H/O TOBACCO USE HYPERCALCEMIA. TECHNIQUE: 2D digital imaging was performed. COMPARISON: No exams were available for comparison FINDINGS: Heart size is normal. The mediastinum is not widened. Lungs are clear. No infiltrates nor pleural effusions. IMPRESSION: No acute pulmonary findings. DATA REPOSITORY: RADIATION DOSE DELIVERED:
== END 2021-12-02 01:31 ==
PROVIDERS: PCP Nurse Practitioner Family; Visit Provider Nurse Practitioner Family
DX: R07.89 Other chest pain (principal)
CPT/HCPCS: 71046

== ENCOUNTER 2021-12-02 10:44 | Outpatient (REF) | payer MEDICAID, SELFPAY ==
[2021-12-02 11:12] LABS: HCT 39.9 % (36.0-46.0); HGB 13.3 g/dL (11.2-15.7); MCH 29.1 pg (27.0-33.0); MCHC 33.3 % (32.0-36.0); MCV 87.3 fL (80-95); MPV 10.5 fL (8.0-11.0); Platelet Count 280 10^3/uL (130-400); RBC 4.57 10^6/uL (3.93-5.22); RDW 12.6 % (11.7-14.6); RDW-SD 39.9 fL; WBC 5.46 10^3/uL (4.4-10.8)
[2021-12-02 12:38] LABS: ALT 19 U/L (14-59); AST 11 U/L (15-37); Albumin 4.1 g/dL (3.4-5.0); Alkaline Phosphatase 65 U/L (46-116); Anion Gap 7.6 mmol/L (3-11); BUN 7 mg/dL (7-18); Bilirubin, Total 1.2 mg/dL (0.2-1.0); CO2 26.4 mmol/L (21.0-32.0); CREATININE 0.7 mg/dL (0.55-1.02); Calcium 10.2 mg/dL (8.5-10.1); Chloride 103 mmol/L (98-107); Glucose 114 mg/dL (74-106); Potassium 4.3 mmol/L (3.5-5.1); Sodium 137 mmol/L (136-145); TSH 1.06 uIU/mL (0.36-3.74); Total Protein 7.4 g/dL (6.4-8.2)
[2021-12-03 09:45] LABS: Parathyroid Hormone,Intact 99 pg/mL (19-88)
== END 2021-12-02 10:45 | disposition home or self-care (01) ==
LOC: NCHCN 10:44
PROVIDERS: PCP Nurse Practitioner Family; Visit Provider Nurse Practitioner Family
DX: E83.52 Hypercalcemia (principal); R07.89 Other chest pain
CPT/HCPCS: 80053; 85027; 83970; 84443

== ENCOUNTER 2021-12-09 18:19 | Outpatient (REF) | payer MEDICAID, SELFPAY ==
[2021-12-09 13:31] LABS: ALT 19 U/L (14-59); AST 11 U/L (15-37); Albumin 4.3 g/dL (3.4-5.0); Alkaline Phosphatase 61 U/L (46-116); Anion Gap 9.6 mmol/L (3-11); BUN 10 mg/dL (7-18); Bilirubin, Total 1.1 mg/dL (0.2-1.0); CO2 24.4 mmol/L (21.0-32.0); CREATININE 0.6 mg/dL (0.55-1.02); Calcium 10.3 mg/dL (8.5-10.1); Chloride 105 mmol/L (98-107); Glucose 89 mg/dL (74-106); Sodium 139 mmol/L (136-145); Total Protein 7.6 g/dL (6.4-8.2)
[2021-12-09 13:51] LABS: Vitamin D 25 Total 20.9 ng/mL (30-100)
[2021-12-09 22:40] LABS: Rheumatoid Factor <8.6 IU/mL (<12.0)
[2021-12-10 10:32] LABS: Lyme Ab w Rflx to Lyme Confirm Negative (Negative)
[2021-12-10 12:51] LABS: Parathyroid Hormone,Intact 127 pg/mL (19-88)
[2021-12-10 14:04] LABS: ANA Interpretation Negative (Negative)
== END 2021-12-09 18:20 | disposition home or self-care (01) ==
LOC: NCHCN 18:19
PROVIDERS: PCP Nurse Practitioner Family; Visit Provider Nurse Practitioner Family
DX: R79.89 Other specified abnormal findings of blood chemistry (principal); E83.52 Hypercalcemia; R07.89 Other chest pain; M25.59 Pain in other specified joint
CPT/HCPCS: 80053; 82306; 83970; 86038; 86431; 86618

== ENCOUNTER 2022-01-05 02:26 | Outpatient (CLI) | payer MEDICAID, SELFPAY ==
--- NOTE | 2022-01-05 07:36 | DI.US_ITS ---
APPROVED REPORT EXAM: Comprehensive 2D, Doppler, and color-flow Echocardiogram Patient Location: Out-Patient [employer] Builder: Tegan Sharma RDCS (AE) Indications: Substernal and exertional chest pain, Suspicion for EDS Other Information Study Quality: Adequate Conclusion Normal left ventricular wall thickness and chamber size. Estimated ejection fraction is 60%. Wall m otion is normal Normal right ventricular size and systolic function Both atria are normal in size There is no structural or hemodynamically significant valvular disease. Normal estimated right ventricular systolic pressure 25 mmHg Wall motion Left Ventricle The left ventricle is normal size. The left ventricular systolic function is normal. The left ventric ular ejection fraction is within the normal range. There is normal left ventricular wall thickness. T here is normal LV segmental wall motion. There is no ventricular septal defect visualized. LVEF is 60 %. Right Ventricle The right ventricle is normal size. The right ventricular systolic function is normal. The RVSP is 25 .1 mmHg. Atria The left atrium size is normal. The right atrium size is normal. The interatrial septum is intact wit h no evidence for an atrial septal defect. Aortic Valve The aortic valve is normal in structure. There is no aortic valvular stenosis. No aortic regurgitatio n is present. Mitral Valve The mitral valve is normal in structure. No evidence of mitral valve stenosis. Mild mitral regurgitat ion. Tricuspid Valve The tricuspid valve is normal in structure. There is no tricuspid valve stenosis. Trace to mild tricu spid regurgitation. Pulmonic Valve The pulmonary valve is normal in structure. There is no pulmonic valvular stenosis. There is no pulmo sandra valvular regurgitation. Great Vessels The aortic root is normal in size. The ascending aorta is normal in size. Aortic arch is normal in c aliber. The IVC collapses <50% with inspiration. Pericardium There is no pericardial effusion. 2D Dimensions IVSD d PLAX 0.76 cm F: 0.6-1.0 LV Vol A2C d MOD 92.3 mL LVPW d PLAX 0.77 cm F: 0.6 - 1.0 LV Vol A4C d MOD 98.0 mL LVID d PLAX 4.00 cm F: 3.8 - 5.2 LA vol/ BSA A2C s A-L 28.8 mL/m2 LVDs 2.75 cm F: 2.2 - 3.5 LA vol/ BSA A4C s A-L 21.5 mL/m2 Ao Root d 2.53 cm F: 2.7 - 3.3 LA Vol/ BSA Biplane s A-L 26.9 mL/m2 RA Area A4C 13.11 cm2 LA Area A4C s MOD 14.78 cm2 RA Vol/ BSA A4C s A-L 19.5 mL/m2 LA Area A2C s MOD 15.84 cm2 Ao Asc Diam d 2.95 cm F: 2.3 - 3.1 LV EF A4C MOD 59.5 % LV EF Teichholz 58.4 % LV EF A2C MOD 59.1 % LVEF (Gomez's) 59.74 % F: 54 - 74 LV EF Biplane MOD 59.7 % LV Volume 78.95 mL F: 46 - 106 SV 58.29 mL LV Volume Index 49.03 mL/m2 F: 29 - 61 SV Index 36.04 mL/m2 LV Vol Biplane MOD 97.6 mL FS 30.40 % M-Mode TAPSE 2.23 cm (M/F) >1.7 LV Diastology MV E' medial 0.158 (>0.07 m/s) E/A Ratio 2.0 LV E/e MED 5.65 (<14) MV E Vmax 0.89 (0.4-1.3 m/s) MV E' lateral 0.200 (>0.1 m/s) MV A Vmax 0.45 (0.4-1.3 m/s) LV E/e LAT 4.45 (<14) MV E/A Ratio 1.86 MV E/E' medial 5.66 MV E/E' lateral 4.46 Aortic Valve LVOT Area 2.91 cm2 AoV Area Vmax 2.78 cm2 LVOT Vmax 1.26 m/s AoV Area/ BSA (Vmax) 1.72 cm2/m2 LVOT Mean Ronnie. 0.84 m/s THELMA Mean Ronnie. 2.55 cm2 LVOT Peak Grad 6.3 mmHg THELMA Mean Ronnie. Index 1.58 cm2/m2 LVOT Mean Grad 3.3 mmHg LVOT VTI 0.258 m LVOT Diam s 1.90 cm AoV Vmax 1.31 m/s Velocity Ratio 0.96 AoV Mean Ronnie. 0.95 m/s AoV Peak Grad 6.9 mmHg LVOT SV 75.13 mL AoV Mean Grad 4.0 mmHg AoV VTI 0.267 m AoV Area VTI 2.81 cm2 AoV Area/ BSA (VTI) 1.74 cm/m2 Mitral Valve MV DT 249 (160-240 msec) MV PHT 72 msec MV Area PHT 3.05 cm2 MV VTI 0.319 m MV Area VTI 2.36 (4.0-6.0 cm2) Pulmonary Valve PV Vmax 1.08 (0.5-1.5 m/s) RVOT Peak Gr. 2.15 mmHg PV Peak Grad 4.6 mmHg RVOT Mean Gr. 1.10 mmHg PV Mean Grad 2.2 mmHg RVOT VTI 0.167 m PV VTI 0.223 m RVOT Vmax 0.73 m/s Tricuspid Valve TR Peak Grad 17.0 mmHg TR Vmax 2.07 m/s RA Pressure 8.00 mmHg RVSP (TR) 25.1 mmHg
== END 2022-01-05 02:46 ==
PROVIDERS: PCP Nurse Practitioner Family; Visit Provider Nurse Practitioner Family
DX: R07.89 Other chest pain (principal)
CPT/HCPCS: 93306

== ENCOUNTER 2022-01-31 20:28 | Emergency (ER) | payer MEDICAID, SELFPAY ==
[2022-01-31 20:36] VITALS: BP 111/73; PULSE 63; RESP 14; TEMP 36.7; O2SAT 96
--- NOTE | 2022-01-31 21:30 | ED.GENADUL_ITS ---
Discharge Plan Disposition Patient Disposition: HOME Condition: Improving Discharge Details Chief Complaint: RashLesion Clinical Impression: Abrasion Primary Care Provider: Burak Yoder ED Provider: Pineda Valle Home Meds and New Rx's Prescriptions: No Action ibuprofen 400 mg Tablet 400 mg PO PRN PRN0RF acetaminophen [Tylenol] 325 mg Capsule 500 mg PO PRN PRN0RF Discharge Instructions Instructions: Abrasion (ED) Additional Instructions: Please keep wound clean and dry. Please return to the emergency department for any signs of infection such as high fevers chills, pus drainage increased redness pain or decreased mobility. Medical Decision Making 36-year-old female presents 3 days after sustaining superficial abrasion from dominick nail on her left knee, hemodynamically stable afebrile nontoxic no signs of infection such as abscess or cellulitis, no evidence of retained foreign body given palpation and superficial nature of wound, patient cleaned the wound immediately after event, she is almost due for tetanus booster and referred to get it now and to wait for the 10-year elvia, will administer Tdap. For range of motion ambulatory. No evidence of invasion of the joint space. Home care instructions and return precautions given HPI General Date/Time Provider Initiated Documentation: 01/31/22 20:32 . HPI Narrative: 36-year-old female presents 3 days after sustaining superficial skin abrasion to her left knee by a dominick nail while demolishing a dugout; patient washed wound thoroughly after event. Last tetanus shot was in 2012. No other injuries. Patient is ambulatory. Denies erythema or purulent drainage. Related Data Home Medications Medication Instructions Recorded Confirmed acetaminophen 325 mg capsule 500 mg PO PRN PRN 04/25/21 01/31/22 (Tylenol) ibuprofen 400 mg tablet 400 mg PO PRN PRN 04/25/21 01/31/22 Allergies Allergy/AdvReac Type Severity Reaction Status Date / Time epinephrine AdvReac Severe PULSE Unverified 01/31/22 20:39 DROPS, BP DROPS General Stated Complaint: RashLesion KT: 4 Review of Systems Narrative: Review of Systems Constitutional: negative Eyes: negative ENT: negative Cardiovascular: negative Respiratory: negative Gastrointestinal: negative : negative Musculoskeletal: negative Skin: Abrasion to left knee Neurologic: negative Psych: negative PFSH All Active Problems (Updated 01/31/22 @ 21:37 by Pineda Valle MD) delivery (Acute) Abdominal bloating with cramps (Acute) Cephalgia (Acute) Pain of right great toe (Acute) Leg pain (Acute) Abrasion (Acute) Surgical History Ligation of fallopian tube (04/09/14) BTL KK. Social History Smoking/Tobacco Use Status: Former Tobacco Use Smoking risk assessment performed?: Yes Alcohol Intake: current Alcohol Intake frequency: holidays/special occasions only Alcohol type: hard liquor Drug use: Daily Substance use type: marijuana Do you feel safe at home: Yes Do you feel safe in your relationship?: Yes Exam Narrative Exam Narrative: Physical Examination General: alert, awake, cooperative, resting comfortably, no acute distress HEENT: normocephalic, atraumatic; PERRL, EOM intact, conjunctiva normal; no nasal discharge; moist mucous membranes, oral and pharyngeal mucosa normal, tolerating secretions Neck: supple, trachea midline; full ROM Chest: normal to inspection Respiratory: normal respiratory effort, speaking in full sentences, clear to auscultation, no wheezing, rales or rhonchi Cardiac: regular rate, regular rhythm, S1S2 intact, no murmurs rubs or gallops GI: abdomen soft, non-tender, non-distended; no palpable mass or hepatosplenomegaly Skin: Superficial abrasion approximately 1 cm in length inferior lateral to left patella, no induration erythema or purulence no crepitus no fluctuance no deformity Neuro: AAOx3, normal speech, moving all extremities Extremities: Soft compartments full range of motion of bilateral lower extremities, specifically no effusion to left knee, full flexion extension intact Psych: Appropriate mood and affect Course Vital Signs Vital signs: Vital Signs Temperature 36.7 C 01/31/22 20:36 Pulse 63 01/31/22 20:36 Respiratory Rate 14 01/31/22 20:36 Blood Pressure 111/73 01/31/22 20:36 Pulse Oximetry 96 01/31/22 20:36 Temperature 36.7 C 01/31/22 20:36 Temperature Source Oral 01/31/22 20:36 Pulse 63 01/31/22 20:36 Respiratory Rate 14 01/31/22 20:36 Respiratory Effort Non-Labored 01/31/22 20:39 Blood Pressure 111/73 01/31/22 20:36 Blood Pressure Position Sitting 01/31/22 20:36 Pulse Oximetry 96 01/31/22 20:36 Oxygen Delivery Method Room Air 01/31/22 20:36 Oxygen Flow Rate 0 01/31/22 20:36 PAWSS Have you Been Recently Intoxicated or Drunk Within the Last 30 days?: No Have you Ever Experienced Previous Episodes of Alcohol Withdrawal?: No Have you ever Experienced Withdrawal Seizures?: No Have you ever Experienced Delirium Tremens(DT)s?: No Have you ever undergone Alcohol Rehabilitation Treatment (i.e, inpt ot outpatient treatment programs)?: No Have you ever Experienced Blackouts?: No Have you ever Combined Alcohol with other Downers within the last 90 days?: No Have you ever Combined Alcohol with any other Substance of Abuse during the last 90 days?: No Positive Blood Alcohol level on Presentation? [PCS.BAL]: No Evidence of Increased Autonomic Activity (i.e. HR>120, tremor, sweating, agitation, nausea)?: No Result: 0
[2022-01-31 21:42] VITALS: BP 111/73; PULSE 63; RESP 14; TEMP 36.7; O2SAT 96
== END 2022-01-31 21:41 | disposition home or self-care (01) ==
PROVIDERS: Emergency Provider Emergency Medicine; PCP Nurse Practitioner Family
DX: S80.212A Abrasion, left knee, initial encounter (principal); W45.0XXA Nail entering through skin, initial encounter
CPT/HCPCS: 90471; 99284; 99282

== ENCOUNTER → 2022-09-09 15:52 | Outpatient (CLI) | payer MEDICAID, SELFPAY ==
--- NOTE | 2022-09-09 | DI.RAD_ITS ---
Exam(s) XR KNEE LT 3V AP,LAT,LETICIA EXAM: XR KNEE LT 3V AP,LAT,LETICIA CLINICAL HISTORY: LT KNEE JT PAIN, M25.562, S/P FALL 5 DAYS AGO. TECHNIQUE: 2D digital imaging was performed. Three views. COMPARISON: No exams were available for comparison FINDINGS: BONES: No acute fracture is present. No bony destructive lesion is seen. JOINTS: The knee is normally aligned. No joint effusion is seen. SOFT TISSUE: Normal. IMPRESSION: Normal radiographs of the left knee. DATA REPOSITORY: RADIATION DOSE DELIVERED:
== END ==
PROVIDERS: PCP Physician Assistant; Visit Provider Physician Assistant
DX: M25.562 Pain in left knee (principal)
CPT/HCPCS: 73562

== ENCOUNTER 2022-10-13 01:27 | Outpatient (CLI) | payer MEDICAID, SELFPAY ==
--- NOTE | 2022-10-13 10:05 | DI.MRI_ITS ---
Exam(s) MR LOWER JOINT LT WO EXAM: MR LOWER JOINT LT WO CLINICAL HISTORY: L KNEE PAIN,internal derangement, m79.18,m23.92 TECHNIQUE: Multiplanar multisequence MRI of the knee was performed. COMPARISON: CR XR KNEE LT 3V AP,LAT,LETICIA from 09/09/2022 FINDINGS: EFFUSION: There is a small amount of increased joint fluid. No large joint effusion. There is no Ba ker cyst in the popliteal fossa. There is some subcutaneous edema posteriorly and anteriorly around the knee. MARROW:There is no evidence of fracture, bone contusion, nor osteochondral defects.. There are no si gnificant osseous lesions. PATELLOFEMORAL COMPARTMENT: The quadriceps tendon is intact. The patellar ligament is intact. There is some mild increased signal in the superolateral aspect of the anterior intra-articular Hoffa fat pad. There is no significant thinning of the retropatellar cartilage. No evidence of fissure nor signific ant chondral defect. No osteochondral defect at this level.There is no intraosseous signal to sugges t recent patellar dislocation. There are no patellar retinacular tears. CRUCIATE LIGAMENTS: The anterior cruciate ligament is intact.The posterior cruciate ligament is intac t. MEDIAL COMPARTMENT/MEDIAL MENISCUS: There are no tears of the medial meniscus evident.. There are no chondral defects, osteochondral defects, subarticular marrow edema, nor osteophytes evid ent. MEDIAL COLLATERAL LIGAMENT: Intact LATERAL COMPARTMENT/LATERAL MENISCUS: There is no evidence of lateral meniscal tear.There is some car tilage thinning over the anterior weight-bearing surface of the lateral femoral condyle with some sub articular edema evident. No discrete osteochondral defects. ILIOTIBIAL BAND: Intact LATERAL COLLATERAL LIGAMENT COMPLEX: The fibular collateral ligament is intact. The biceps femoris t endon is intact.Popliteus muscle and tendon are intact. IMPRESSION: 1. There are no evidence meniscal nor cruciate ligament tears and there no collateral ligament tears. 2. There is some cartilage loss-mild over the anterior weight-bearing surface of the lateral femoral condyle with mild subarticular edema at this level but no formed osteochondral defects. No osteophyt es. 3. There is mild increased signal in the superolateral aspect of the anterior intra-articular Hoffa f at pad. This may be associated with an element impingement syndrome at this level. There is no abno rmal signal within the patella itself and the retropatellar cartilage appears unremarkable. There ar e no patellar retinacular tears. 4. Small amount of increased joint fluid noted. DATA REPOSITORY:
== END 2022-10-13 01:47 ==
LOC: DI 01:27
PROVIDERS: PCP Physician Assistant; Visit Provider Student in an Organized Health Care Education/Training Program
DX: M23.92 Unspecified internal derangement of left knee (principal); M79.18 Myalgia, other site
CPT/HCPCS: 73721

== ENCOUNTER 2025-07-06 07:11 | Emergency (ER) | payer OTHER, SELFPAY ==
--- NOTE | 2025-07-06 07:15 | DI.RAD_ITS ---
Exam(s) XR WRIST LT COMPLETE EXAM: XR WRIST LT COMPLETE CLINICAL HISTORY: injury, pain distal ulnar styloid region, crepitus. TECHNIQUE: 2D digital imaging was performed. Three views. COMPARISON: No exams were available for comparison FINDINGS: BONES: No acute fracture is present. No bony destructive lesion is seen. JOINTS: The carpal bones are normally aligned. SOFT TISSUE: Normal. IMPRESSION: Unremarkable radiographs of the left wrist. The preliminary [facility] report was reviewed. DATA REPOSITORY: RADIATION DOSE DELIVERED:
[2025-07-06 07:16] VITALS: BP 119/78; PULSE 64; RESP 16; TEMP 36.6; O2SAT 98
--- NOTE | 2025-07-06 07:29 | W.ED.GENAD ---
Discharge Plan Disposition Patient Disposition: Home Condition: Fair Discharge Details Clinical Impression: Sprain of left wrist Primary Care Provider: Rob Olivares ED Provider: Dutch Dinero Home Meds and New Rx's Prescriptions: No Action ibuprofen 400 mg Tablet 400 mg PO PRN PRN acetaminophen [Tylenol] 325 mg Capsule 500 mg PO PRN PRN Discharge Instructions Instructions: Wrist Sprain ED Referrals: Rob Olivares [Primary Care Provider, Medicine] - 1 week Discharge Data Discharge Date/Time-TO BE ENTERED AT DEPARTURE: 07/06/25 08:35 HPI General Date/Time Provider Initiated Documentation: 07/06/25 07:23. HPI Narrative: This is a 39-year-old female presenting to the emergency department with a chief complaint of left wrist pain. Patient states that 2 days ago she was lifting heavy box and it pulled her left wrist in a downward fashion. She had immediate pain and felt like it was swollen. She had a brace which she put on it. Patient states that the pain has improved markedly although she still does have pain with manipulation of the wrist. She is concerned because she has a crepitant feeling when she moves the wrist. She indicates in the area of the distal ulnar styloid. She has no discomfort at rest and when the wrist is not moving. She has not been ill recently. No fevers or rash. No cough or congestion. No nausea or vomiting. She denies chance of . No other complaints or concerns. Related Data Home Medications ?Medication ?Instructions ?Recorded ?Confirmed acetaminophen 325 mg capsule 500 mg PO PRN PRN 04/25/21 07/06/25 (Tylenol) ibuprofen 400 mg tablet 400 mg PO PRN PRN 04/25/21 07/06/25 Allergies Allergy/AdvReac Type Severity Reaction Status Date / Time epinephrine AdvReac Severe PULSE Unverified 07/06/25 07:18 DROPS, BP DROPS chick peas AdvReac Intermediate Skin Rash Uncoded 07/06/25 07:18 kidney beans AdvReac Intermediate Hives Uncoded 07/06/25 07:18 shukla beans AdvReac Intermediate Hives Uncoded 07/06/25 07:18 General Stated Complaint: Orthopedic KT: 4 Review of Systems All systems reviewed & are unremarkable except as noted in HPI and below Constitutional Constitutional: Reports system reviewed and no additional complaints, except as documented, Denies fever(s), Denies weakness and Denies weight loss Eyes Eyes: Denies blurry vision ENT Ears, Nose, Mouth, and Throat: Denies sore throat Cardiovascular Cardiovascular: Denies chest pain, Denies palpitations and Denies dyspnea Respiratory Respiratory: Denies cough, Denies dyspnea and Denies wheezing Gastrointestinal Gastrointestinal: Denies abdominal pain, Denies diarrhea, Denies nausea and Denies vomiting Genitourinary Genitourinary: Denies hematuria and Denies dysuria Musculoskeletal Musculoskeletal: Denies back pain, Denies arthralgias and Denies numbness Comments: Left wrist. Neurologic Neurologic: Denies numbness and Denies weakness Psychiatric Psychiatric: Denies suicidal ideation Endocrine Endocrine: Denies palpitations Allergic/Immunologic Allergic/Immunologic: Denies wheezing Exam Const General: no acute distress and well groomed HENMT Mouth: oral mucosae normal and moist mucous membranes Throat: posterior oropharynx normal Eyes Conjunctivae: conjunctivae normal Sclera: sclerae normal Neck Neck: full ROM and No JVD Resp Effort & Inspection: normal respiratory effort Auscultation: clear to auscultation bilaterally Cardio Rate: regular rate Rhythm: regular rhythm Heart Sounds: no murmurs GI Palpation: soft and nontender Skin General skin exam: no rashes or lesions noted Neuro General: patient alert and patient oriented x3 Extrem Other: Left wrist is mildly tender just distal to the ulnar styloid. No effusion. Pain is exacerbated by flexion of the wrist. Radial pulses 2+. Distal sensation is intact. Psych Appearance: grossly normal Mental Status: mental status grossly normal Speech and Movement: speech and movement normal Affect: normal affect Thought Process: normal Course Vital Signs Vital signs: Vital Signs Temperature 36.6 C 07/06/25 07:16 Pulse 64 07/06/25 07:16 Respiratory Rate 16 07/06/25 07:16 Blood Pressure 119/78 07/06/25 07:16 Pulse Oximetry 98 07/06/25 07:16 Temperature 36.6 C 07/06/25 07:16 Temperature Source Tympanic 07/06/25 07:16 Pulse 64 07/06/25 07:16 Respiratory Rate 16 07/06/25 07:16 Blood Pressure 119/78 07/06/25 07:16 Blood Pressure Position Sitting 07/06/25 07:16 Pulse Oximetry 98 07/06/25 07:16 Oxygen Delivery Method Room Air 07/06/25 07:16 Oxygen Flow Rate 0 09/28/25 07:16 Pain Level 2 07/06/25 07:16 Medical Decision Making This is a 39-year-old female presenting to the emergency department with a chief complaint of left wrist pain. The patient was seen and examined by me. Old charts were reviewed and nursing notes were reviewed. Patient was last seen in this system around 3 years ago for left knee pain in the physical therapy clinic. This not related. Patient declined pain medication or ice packs. X-rays were initiated. These did not reveal any fractures or acute abnormalities to my read. The patient is already with a splint. She is encouraged to continue this and follow-up with her primary care. If symptoms persist she may benefit from physical therapy. She was notified that we will contact her if the x-rays are over read and there are any findings of concern. Medical Records Medical records reviewed: Yes I reviewed the patient's medical records. 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 Social History Smoking/Tobacco Use Status: Former Tobacco Use Smoking risk assessment performed?: Yes Alcohol Intake: current Alcohol Intake frequency: holidays/special occasions only Alcohol type: hard liquor Drug use: Daily Substance use type: marijuana Current gender identity: female Do you feel safe at home: Yes Do you feel safe in your relationship?: Yes
--- NOTE | 2025-07-06 10:08 | DI.[facility]_ITS ---
PROCEDURE INFORMATION: Exam: XR Left Wrist Exam date and time: 07/06/2025 7:40 AM Age: 39 years old Clinical indication: Other: Injury, pain distal ulnar styloid region, crepitus TECHNIQUE: Imaging protocol: Radiologic exam of the left wrist. Views: 3 or more views. COMPARISON: No relevant prior studies available. FINDINGS: Bones/joints: Normal. Soft tissues: Normal. IMPRESSION: No acute fracture or dislocation. Dictated and Authenticated by: Se Hamm MD. Orderin Bar Judd MD
== END 2025-07-06 08:35 | disposition home or self-care (01) ==
PROVIDERS: Emergency Provider Emergency Medicine; PCP Physician Assistant
DX: S63.502A Unspecified sprain of left wrist, initial encounter (principal); X50.0XXA Overexertion from strenuous movement or load, initial encounter
CPT/HCPCS: 99283 ×2; 73110